=== PATIENT | female | born 1995 | race Caucasian/White ===

== ENCOUNTER 2023-12-04 12:08 | Emergency (ER) | payer OTHER, SELFPAY ==
--- NOTE | ~2023-12-04 | US_ITS ---
EXAMINATION: US PELVIS CLINICAL INFORMATION: Vaginal bleeding and pelvic pain COMPARISON: None available. TECHNIQUE: Ultrasound of the pelvis is performed using both transabdominal and transvaginal transducers along with Doppler. Transvaginal imaging is performed due to inadequate visualization transabdominally. FINDINGS: Uterus: The uterus is anteverted and measures 8.7 x 3.3 x 5.7 cm. The double wall endometrial thickness is 5 mm. The uterus is smooth in contour and has normal myometrial echogenicity. No visible fibroid. Adnexa: Both ovaries are visualized. There is normal color flow to the adnexa. There is no ovarian torsion. There is no pelvic ascites or fluid collection. Right ovary measures 3.1 x 3.4 x 2.4 cm for a volume of 13.2 mL. Left ovary measures 2.3 x 1.2 x 1.3 cm for a volume of 2.0 mL. US/US pelvic and transvaginal IMPRESSION: Unremarkable pelvic ultrasound.
[2023-12-04 12:21] VITALS: BP 106/68; PULSE 83; RESP 18; TEMP 36.2; O2SAT 98; BMI 30.4
--- NOTE | 2023-12-04 12:23 | ED.GENADULT ---
HPI - General Adult General Chief complaint: Vaginal Bleeding Stated complaint: All Over Body Pain Pressure on Ovaries Time Seen by Provider: 12/05/23 01:18 Source: patient Mode of arrival: ambulatory Limitations: no limitations History of Present Illness HPI narrative: Patient otherwise Healthy noticed vaginal bleeding earlier today change about 10 tempon today with lower abdominal discomfort feeling weak with body aches patient does have regular periods in the past not on any control pills used to be on IUD last year which was removed no fever no chills no cough Related Data Allergies Allergy/AdvReac Type Severity Reaction Status Date / Time onion Allergy Unknown Verified 12/04/23 12:21 shrimp Allergy Difficulty Verified 12/04/23 12:21 Swallowing Review of Systems Review of Systems: Yes all other systems are reviewed and are negative [facility] Social History Social History Advance Directives: No Advance Directives Information Provided: No Physical Exam ED Vital Signs: Vital Signs - 24 hr 12/04/23 12:21 Temperature 97.1 F Pulse Rate 83 Respiratory Rate 18 Blood Pressure 106/68 Pulse Oximetry 98 Oxygen Delivery Method Room Air BMI result Body Mass Index 30.4 Appearance: Alert. Oriented X3. No acute distress. Eyes: PERRLA, No Nystagmus ENT: Pharynx normal. Oral Mucosa moist Neck: Normal inspection. Neck supple. CVS: Normal heart rate and rhythm. Pulses normal. Respiratory: No respiratory distress. Equal air entry bilateral, no wheezing/rales/rhonchi Abdomen: Soft and nontender. Bowel sounds are present, no mass palpable, no CVA tenderness Skin: Skin warm and dry. Normal skin color. Normal skin turgor. Extremities: No lower extremity edema. No calf tenderness Neuro: Oriented X 3. No motor deficit. No sensory deficit.No cerebellar signs , cranial nerves II-XII intact Course Course Course Narrative: RME: 28 year-old F w/ PMHx presenting to the ED c/o generalized body aches x yesterday also with vaginal bleeding w/clots w/lower pelvic pain, sent in by . LMP yesterday. denies dysuria/vaginal d/c Admits tested negative for COVID/FLU today at . Labs, UA, Pelvic US ordered Full HPI, ROS and PE to be performed by primary ED provider. Medications Administered Discontinued Medications Generic Name Dose Route Start Last Admin Trade Name Marco PRN Reason Stop Dose Admin Acetaminophen 650 mg 12/04/23 20:13 12/04/23 20:16 Acetaminophen 325 Mg Tablet PO 12/04/23 20:14 650 mg ONCE ONE Administration Medical Decision Making Medical Decision Making [facility] Narrative: Patient workup is negative with H&H stable bleeding has decreased ultrasound of the abdomen is negative for acute will discharge patient home likely for DUB advised to follow with dolly operator Differential Diagnosis Differential Diagnoses: The differential diagnosis associated with the presentation includes Anemia/DUB/ Lab Data [facility] Lab Attestation statement: I reviewed the patient's lab results. 12/04/23 12:46 12/04/23 12:46 Labs: Lab Results 12/04/23 12/04/23 Range/Units 12:46 14:36 WBC 7.9 (4.8-10.8) X10*3/uL RBC 4.54 (4.20-5.50) X10*6/uL Hgb 13.8 (12.0-16.0) g/dl Hct 40.0 (37.0-47.0) % MCV 88.1 (80.0-98.0) fL MCH 30.4 (27.0-33.0) pg MCHC 34.5 (31.0-35.0) g/dl RDW 11.9 (11.0-16.0) % Plt Count 259 (160-400) X10*3/uL MPV 9.5 (9.4-12.3) fL Immature Gran % (Auto) 0.3 (0.0-0.4) % Neut % (Auto) 57.7 (45-73) % Lymph % (Auto) 33.6 (20-40) % [place] % (Auto) 7.1 (2-11) % Eos % (Auto) 1.0 (0-4) % Baso % (Auto) 0.3 (0-2) % Lymph # (Auto) 2.7 (1.2-4.9) X10*3/uL [place] # (Auto) 0.6 (0.1-1.2) X10*3/uL Eos # (Auto) 0.1 (0.0-0.4) X10*3/uL Baso # (Auto) 0.0 (0.0-0.2) X10*3/uL Abs Immat Gran (auto) 0.02 (0.00-0.03) X10*3/uL Absolute Neuts (auto) 4.6 (2.0-8.3) x10*3/uL Absolute Nucleated RBC 0.000 (0.0-0.012) X10*3/uL Nucleated RBC % (auto) 0.0 (0.0-0.2) /100WBC Sodium 142 (135-145) mmol/L Potassium 3.8 (3.3-5.1) mmol/L Chloride 112 H (96-108) mmol/L Carbon Dioxide 24 (22-29) mmol/L Anion Gap 10 L (12-20) BUN 11 (9-16) mg/dL Creatinine 0.74 (0.5-1.4) mg/dL Estim Creat Clear Calc 132.1 Estimated GFR > 60 Random Glucose 91 (60-115) mg/dL Calcium 9.0 (8.4-10.2) mg/dL Magnesium 2.0 (1.6-2.6) mg/dL Total Bilirubin 0.4 (0.0-1.0) mg/dL Direct Bilirubin 0.2 (0.0-0.5) mg/dL AST 12 (5-31) U/L ALT 10 (0-31) U/L Alkaline Phosphatase 64 (39-117) U/L Total Protein 7.0 (6.5-8.0) g/dL Albumin 4.1 (3.5-5.0) g/dL Lipase 20 (8-78) U/L Urine Color Yellow Urine Appearance Clear Urine pH 5.0 (5.0-9.0) Ur Specific [place] >= 1.030 H (1.005-1.025) Urine Protein Negative (Neg-Trace) mg/dL Urine Glucose (UA) Negative (Negative) mg/dL Urine Ketones Negative (Negative) mg/dL Urine Blood Small (1+) H (Negative) Urine Nitrite Negative (Negative) Ur Leukocyte Esterase Negative (Negative) Urine RBC 0-2 (0-2) /HPF Urine WBC 0-5 (0-5) /HPF Ur Squamous Epith Cells 0-2 (0-2) /HPF Urine Bacteria None Seen (None Seen) Hyaline Casts 0-2 (0-2) /LPF Urine Test NEGATIVE (NEGATIVE) Chlam trachomat DNA PCR NOT DETECTED (Not Detect.) N.gonorrhoeae DNA (PCR) NOT DETECTED (Not Detect.) Radiology Impression Discussion of test interpretation with radiology: I have reviewed the radiologist's reading. 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
[2023-12-04 12:54] LABS: MANUAL DIFF FLAG NO
[2023-12-04 12:56] LABS: Basophils Percent Auto 0.3 % (0-2); Eosinophils Absolute Auto 0.1 X10*3/uL (0.0-0.4); Hemoglobin 13.8 g/dl (12.0-16.0); Imm Gran Abs Auto 0.02 X10*3/uL (0.00-0.03); Imm Gran Pct Auto 0.3 % (0.0-0.4); Lymphocytes Absolute Auto 2.7 X10*3/uL (1.2-4.9); Lymphocytes Percent Auto 33.6 % (20-40); Mean Corpuscular HGB Conc 34.5 g/dl (31.0-35.0); Mean Corpuscular Hemoglobin 30.4 pg (27.0-33.0); Mean Corpuscular Volume 88.1 fL (80.0-98.0); Mean Platelet Volume 9.5 fL (9.4-12.3); Monocytes Absolute Auto 0.6 X10*3/uL (0.1-1.2); Monocytes Percent Auto 7.1 % (2-11); Neutrophils Absolute Auto 4.6 x10*3/uL (2.0-8.3); Neutrophils Percent Auto 57.7 % (45-73); Platelet Count 259 X10*3/uL (160-400); Red Blood Count 4.54 X10*6/uL (4.20-5.50); Red Cell Distribution Width 11.9 % (11.0-16.0); White Blood Count 7.9 X10*3/uL (4.8-10.8)
[2023-12-04 13:12] LABS: Alanine Aminotransferase 10 U/L (0-31); Albumin Level 4.1 g/dL (3.5-5.0); Alkaline Phosphatase 64 U/L (39-117); Anion Gap 10 (12-20); Aspartate Amino Transferase 12 U/L (5-31); Bilirubin Direct 0.2 mg/dL (0.0-0.5); Bilirubin Total 0.4 mg/dL (0.0-1.0); Blood Urea Nitrogen 11 mg/dL (9-16); Carbon Dioxide 24 mmol/L (22-29); Chloride 112 mmol/L (96-108); Creatinine Clr Calc Pharmacy 132.1; Estimated Glomerular Filt Rate > 60; Glucose Random 91 mg/dL (60-115); Lipase 20 U/L (8-78); Potassium 3.8 mmol/L (3.3-5.1); Sodium 142 mmol/L (135-145)
[2023-12-04 14:29] LABS: CT PCR NOT DETECTED (Not Detect.); NG PCR NOT DETECTED (Not Detect.)
[2023-12-04 14:46] LABS: Appearance Urine Clear; Color Urine Yellow; Glucose Urine UA Negative (Negative); Leukocyte Esterase Urine Negative (Negative); Nitrite Urine Negative (Negative); Specific Gravity - Urine >= 1.030 (1.005-1.025); UMIC TRIGGER UACC YES; Urine Blood Small (1+) (Negative); Urine Ketones Negative (Negative); Urine Protein Negative (Neg-Trace)
[2023-12-04 14:52] LABS: UPreg QC Valid YES; Urine Pregnancy NEGATIVE (NEGATIVE)
[2023-12-04 14:54] LABS: Bacteria Urine None Seen (None Seen); Hyaline Casts Urine 0-2 /LPF (0-2); RBC Urine 0-2 /HPF (0-2); Squamous Epithelial Cell Urine 0-2 /HPF (0-2); WBC Urine 0-5 /HPF (0-5)
[2023-12-04] MEDS: Acetaminophen 325 MG TABLET 650 MG PO (20:16)
--- OUTSIDE RECORDS SUMMARY | 2023-12-05 00:30 | XMS_ITS | Continuity of Care Document ---
Author Name Unknown Organization [facility] Address [address] [place] [address]- Care Team Providers Care Digital Account Supervisor Name Role Phone Lizzy LEO, Becky Primary Care Physician [facility]): 07[facility]20 - 08/21/20 [facility] [address] [place] [address]- [facility] Allergies, Adverse Reactions, Alerts Substance Reaction Severity Status Shrimp Active Onions Active Immunizations Given and Recorded Vaccine Date Status Refusal Reason tetanus/diphtheria/pertussis, acel(Tdap) 07/27/17 Recorded tetanus/diphtheria/pertussis, acel(Tdap) 03/19/14 Given tetanus/diphtheria/pertussis, acel(Tdap) 01/14/07 Given influenza virus vaccine, inactivated 1 12/15/15 Gi yessica influenza virus vaccine, inactivated 07/15/12 Give n Hepatitis A Pediatric Vaccine 03/10/15 Given Human Papillomavirus Vaccine 02/22/09 Given Human Papillomavirus Vaccine 10/23/08 Given Human Papillomavirus Vaccine 08/14/08 Given Varicella Virus Vaccine 08/14/08 Given Varicella Virus Vaccine 08/02/98 Given Meningococcal Conjugate Vaccine 01/14/07 Given Poliovirus Vaccine, Inactivated 08/02/98 Given Poliovirus Vaccine, Inactivated 02/09/95 Given Poliovirus Vaccine, Inactivated 94 Given Measles/Mumps/Rubella Virus Vaccine 08/02/98 Given Measles/Mumps/Rubella Virus Vaccine 06/15/95 Given diphtheria/tetanus/pertussis, acel(DTaP) 08/02/98 Given diphtheria/tetanus/pertussis, acel(DTaP) 04/11/96 Given diphtheria/tetanus/pertussis, acel(DTaP) 02/09/95 Given diphtheria/tetanus/pertussis, acel(DTaP) 94 Given diphtheria/tetanus/pertussis, acel(DTaP) 94 Given Haemophilus B conjugate (HbOC) vaccine 12/02/95 Gi yessica Haemophilus B conjugate (HbOC) vaccine 02/09/95 Gi yessica Haemophilus B conjugate (HbOC) vaccine 94 Gi yessica Haemophilus B conjugate (HbOC) vaccine 94 Gi yessica hepatitis B pediatric vaccine 02/09/95 Given hepatitis B pediatric vaccine 94 Given hepatitis B pediatric vaccine 94 Given Not Given Vaccine Date Status Refusal Reason influenza virus vaccine, inactivated 12/13/18 Not Given Patient Refuses pneumococcal 23-valent vaccine 12/13/18 Not Given Patient Refuses 1Admin Note: vis form given 06/18/2015 Medications Chantix Starter Pack 0.5 mg-1 mg oral tablet 1 tablet, By Mouth, 2 times a day, as directed on package labeling, # 53 tablet, 0 Refills, Maintenance, 01/06/20 8:04:00 EST, Tablet, [facility] #[id number], 1 tablet By Mouth 2 times a day,Instr:as directed on package labeling, 173, cm, ... Start Date: 01/06/20 Status: Ordered Mirena 52 mg intrauterine device 1 each = 52 mg, Once, 0 Refills, Maintenance, 04/28/19 14:03:15 EDT Start Date: 04/28/19 Status: Ordered Narcan 4 mg/0.1 mL nasal spray PRN overdose Rx by [facility], 0 Refills, Maintenance, 09/17/18 16:33:22 EST Start Date: 09/17/18 Status: Ordered sertraline 100 mg oral tablet 1.5 tablet = 150 mg, By Mouth, Daily, # 135 tablet, 1 Refills, Maintenance, 07/23/20 10:15:00 EDT, Tablet, [facility] #[id number], 173, cm, 01/31/20 14:00:00 EDT, Height, 86.6, kg, 12/02/19 9:54:00 EST, Dry Weight Start Date: 07/23/20 Stop Date: 01/19/21 Status: Ordered Vivitrol 380 mg intramuscular injection, extended release = 380 mg, Intramuscular, Every 28 days, Rx by [facility], 0 Refills, Maintenance, 10/17/1811:54:34 EST Start Date: 10/17/18 Status: Ordered Wellbutrin XL 150 mg/24 hours oral tablet, extended release 1 tablet = 150 mg, By Mouth, Every 24 hours, # 90 tablet, 1 Refills, Maintenance, 07/23/20 10:15:00EDT, ER Tablet, [facility] #[id number], 173, cm, 01/31/20 14:00:00 EDT, Height, 86.6, kg, 12/02/19 9:54:00 EST, Dry Weight Start Date: 07/23/20 Stop Date: 01/19/21 Status: Ordered ZyrTEC 10 mg oral tablet 1 tablet = 10 mg, By Mouth, Daily, PRN seasonal allergies, # 30 tablet, 5 Refills, Maintenance, 03/16/20 9:54:00 EDT, [facility] #[id number], 173, cm, 01/31/20 14:00:00 EDT, Height, 86.6, kg, 12/02/19 9:54:00 EST, Dry Weight Start Date: 03/16/20 Status: Ordered Problem List Condition Effective Dates Status Health Status Inform ant Cholelithiasis (gallstones)(Confirmed) Active Depression/Anxiety(Confirmed) Active Tobacco use(Confirmed) Active Social History Social History Type Response Smoking Status Current every day mel mark entered on: 12/16/15 Sex
--- OUTSIDE RECORDS SUMMARY | 2023-12-05 00:30 | XMS_ITS | Continuity of Care Document ---
Author Name Unknown Organization [facility] Address [address] [place] [address]- Care Team Providers Care Email Marketing Assistant Name Role Phone Lizzy LEO, Becky Primary Care Physician [facility]): 05/12[facility]20 - 06/11/20 [facility] [address] [place] [address]- [facility] Attending Physician: Armando Montero Admitting Physician: Armando Montero Referring Physician: AdmtrArmando Allergies, Adverse Reactions, Alerts Substance Reaction Severity [...] 0 Refills, Maintenance, 01/06/20 8:04:00 EST, Tablet, [facility] #[id number], 1 tablet By Mouth 2 times a [...] Daily, # 135 tablet, 1 Refills, Maintenance, 03/16/20 9:55:00 EDT, Tablet, [facility] #[id number], 173, cm, 01/31/20 14:00:00 EDT, Height, 86.6, kg, 12/02/19 9:54:00 EST, Dry Weight Start Date: 03/16/20 Stop Date: 09/12/20 Status: Ordered Vivitrol 380 mg intramuscular injection, extended release = 380 mg, Intramuscular, Every 28 days, Rx by [facility], 0 Refills, Maintenance, 10/17/1811:54:34 EST Start Date: 10/17/18 Status: Ordered Wellbutrin XL 150 mg/24 hours oral tablet, extended release 1 tablet = 150 mg, By Mouth, Every 24 hours, # 90 tablet, 1 Refills, Maintenance, 03/16/20 9:55:00 EDT, ER Tablet, [facility] #[id number], 173, cm, 01/31/20 14:00:00 EDT, Height, 86.6, kg, 12/02/19 9:54:00 EST, Dry Weight Start Date: 03/16/20 Stop Date: 09/12/20 Status: Ordered ZyrTEC 10 mg oral tablet 1 tablet = 10 mg, By Mouth, Daily, PRN seasonal allergies, # 30 tablet, 5 Refills, Maintenance, 03/16/20 9:54:00 EDT, [facility] #[id number], 173, cm, 01/31/20 14:00:00 EDT, Height, 86.6, kg, 12/02/19 9:54:00 EST, Dry Weight Start Date: 03/16/20 Status: Ordered Problem List Condition Effective Dates Status Health Status Inform ant Cholelithiasis (gallstones)(Confirmed) Active Depression/Anxiety(Confirmed) Active Tobacco use(Confirmed) Active Social History Social History Type Response Smoking Status Current every day mel mark entered on: 12/16/15 Sex
--- OUTSIDE RECORDS SUMMARY | 2023-12-05 00:30 | XMS_ITS | Continuity of Care Document ---
Author Name Unknown Organization [facility] Address [address] [place] [address]- Care Team Providers Care Actuarial Trainee Name Role Phone Diane Frank MD Primary Care Physician [facility] 10/10/23 - 11/09/23 [facility] [address] [place] [address]- Attending Physician: AdmArmando brothers Admitting Physician: Admtr, Armando Referring Physician: Admtr, Ar8 Allergies, Adverse Reactions, Alerts Substance Reaction Severity Status Shrimp Active Onions Active Immunizations Given and Recorded Vaccine Date Status Refusal Reason SARS-CoV-2 (COVID-19) mRNA-1273 vaccine 10/05/21 R ecorded SARS-CoV-2 (COVID-19) mRNA-1273 vaccine 12/29/20 R ecorded SARS-CoV-2 (COVID-19) mRNA-1273 vaccine 12/01/20 R ecorded influenza virus vaccine, inactivated 09/21/21 Lester rded influenza virus vaccine, inactivated 09/21/20 Lester rded influenza virus vaccine, inactivated 1 12/15/15 Gi yessica influenza virus vaccine, inactivated 07/15/12 Give n tetanus/diphtheria/pertussis, acel(Tdap) 07/27/17 Recorded tetanus/diphtheria/pertussis, acel(Tdap) 03/19/14 Given tetanus/diphtheria/pertussis, acel(Tdap) 01/14/07 Given Hepatitis A Pediatric Vaccine 03/10/15 Given Human [...] Given hepatitis B pediatric vaccine 94 Given 1Admin Note: vis form given 06/18/2015 Medications albuterol CFC free 90 mcg/inh inhalation aerosol 2, puffs, Inhalation, Every 6 hours, PRN, # 8.5 Gm, Refills 1, Tot. Refills 1, Maintenance, 03/06/23 17:32:00 EDT, Aerosol, Route to Pharmacy Electronically, [id number], [facility] #[id number], [facility] not available, 173... Start Date: 03/06/23 Stop Date: 05/05/23 Status: Ordered buPROPion 300 mg/24 hours (XL) oral tablet, extended release 1 tablet = 300 mg, By Mouth, Daily, Rx by [facility], 0 Refills, Maintenance, 12/01/20 13:52:00 EST, Partial fill upon patient request if the prescription is for a schedule II opioid drug. Start Date: 12/01/20 Status: Ordered Hair, Skin & Nails 5 mg oral capsule 1 capsule = 5 mg, By Mouth, Daily, # 30 capsule, 0 Refills, Maintenance, 01/09/22 11:26:00 EST, [facility] #[id number], Partial fill upon patient request if the prescription is for a schedule IIopioid drug., 1 capsule By Mouth Daily, 173, cm, 02... Start Date: 01/09/22 Status: Ordered hydrOXYzine hydrochloride 25 mg oral tablet 1 tablet = 25 mg, By Mouth, 2 times a day, PRN anxiety, 0 Refills, Maintenance, 01/04/21 14:15:00 EST, Partial fill upon patient request if the prescription is for a schedule II opioid drug. Start Date: 01/04/21 Status: Ordered lamotrigine 200 mg oral tablet 1 tablet = 200 mg, By Mouth, Daily at bedtime, Rx by [facility], 0 Refills, Maintenance,02/15/21 10:47:00 EDT, Partial fill upon patient request if the prescription is for a schedule II opioid drug. Start Date: 02/15/21 Status: Ordered Mirena 52 mg intrauterine device 1 each = 52 mg, Once, 0 Refills, Maintenance, 04/28/19 14:03:15 EDT Start Date: 04/28/19 Status: Ordered Narcan 4 mg/0.1 mL nasal spray = 4 mg, Nares, Both, Once, may repeat every 2 to 3 minutes until patient responds, # 2 each, 5 Refills, Soft Stop, 12/01/20 13:54:00 EST, [place], [facility] #[id number], Partial fill upon patientrequest if the prescription is for a schedule II op... Start Date: 12/01/20 Status: Ordered Paxlovid 150 mg-100 mg oral tablet See Instructions, 300mg nirmatrelvir (two 150mg tablets) with 100mg ritonavir (one tablet). All 3 tablets taken together twice daily for 5 days, with or without food, # 30 tablet, 0 Refills, Maintenance, 05/26/22 9:41:00 EDT, [facility],... Start Date: 05/26/22 Status: Ordered Sertraline = 175 mg, By Mouth, Daily, Rx by [facility], 0 Refills, Maintenance, 01/04/21 14:16:00 EST, Partial fill upon patient request if the prescription is for a schedule II opioid drug. Start Date: 01/04/21 Status: Ordered Vivitrol 380 mg intramuscular injection, extended release 0 Refills, Maintenance, 05/25/22 13:08:00 EDT, Partial fill upon patient request if the prescription is for a schedule II opioid drug. Start Date: 05/25/22 Status: Ordered ZyrTEC 10 mg oral tablet 1 tablet = 10 mg, By Mouth, Daily, PRN seasonal allergies, # 30 tablet, 5 Refills, Maintenance, 03/05/23 14:53:00 EDT, [facility] #[id number], 173, cm, 04/10/22 13:09:00 EDT, Height Start Date: 03/05/23 Status: Ordered Problem List Condition Confirmation Course Effective Dates Status H ealth Status Informant Cholelithiasis (gallstones) Confirmed Active Depression/Anxiety Confirmed Active Obese class I Confirmed Active Tobacco use Confirmed Active Social History Social History Type Response Smoking Status 5-9 cigarettes (betw een 1/4 to 1/2 pack)/day in last 30 days; Other: trying to quit - down from 15 to 2cig daily; entered on: 01/09/22 Sex Patient Care team information Care Team Personnel Name: Zac LEO, Diane Parekh Position: [facility] Physician - Primary Care Member Role: PCP Address: Address: [address] [place] [address] Adult & Pediatric [address] Name: Rosalina Hadley RN Position: [facility] RN Member Role: Primary Care Nurse Care Team Related Persons Name: JEFFREY RODRIGUEZ Address: home [address], [place] Name: SARATH GILLILAND Address: home [address], [place] Name: SHELDON GILLILAND Address: [address] Address: home [address] [place] [address]
--- OUTSIDE RECORDS SUMMARY | 2023-12-05 00:30 | XMS_ITS | Continuity of Care Document ---
Author Name Unknown Organization [facility] Address [address] [place] [address]- Care Team Providers Care Packing And Shipping Clerk Name Role Phone Becky Ball MD Primary Care Physician [phone] [facility] 05[facility]20 - 05/10/20 [facility] [address] [place] [address]- [facility] Attending Physician: Becky Ball MD Allergies, Adverse Reactions, Alerts Substance Reaction Severity [...] 0 Refills, Maintenance, 01/06/20 8:04:00 EST, Tablet, [facility] #[id number], 1 tablet By Mouth 2 times a [...] 1 Refills, Maintenance, 03/16/20 9:55:00 EDT, Tablet, [facility] #[id number], 173, cm, 01/31/20 14:00:00 EDT, Height, 86.6, [...] Refills, Maintenance, 03/16/20 9:55:00 EDT, ER Tablet, [facility] #[id number], 173, cm, 01/31/20 14:00:00 EDT, Height, 86.6, kg, 12/02/19 9:54:00 EST, Dry Weight Start Date: 03/16/20 Stop Date: 09/12/20 Status: Ordered ZyrTEC 10 mg oral tablet 1 tablet = 10 mg, By Mouth, Daily, PRN seasonal allergies, # 30 tablet, 5 Refills, Maintenance, 03/16/20 9:54:00 EDT, [facility] #[id number], 173, cm, 01/31/20 14:00:00 EDT, Height, 86.6, kg, 12/02/19 9:54:00 EST, Dry Weight Start Date: 03/16/20 Status: Ordered Problem List Condition Effective Dates Status Health Status Inform ant Cholelithiasis (gallstones)(Confirmed) Active Depression/Anxiety(Confirmed) Active Tobacco use(Confirmed) Active Social History Social History Type Response Smoking Status Current every day mel mark entered on: 12/16/15 Sex
--- OUTSIDE RECORDS SUMMARY | 2023-12-05 00:30 | XMS_ITS | Continuity of Care Document ---
Author Name Unknown Organization [facility] Address [address] [place] [address]- Care Team Providers Care Janitorial Services Supervisor Name Role Phone Diane Frank MD Primary Care Physician [facility]): 02/12/23 - 03/14/23 [facility] [address] [place], [place] [address] Allergies, Adverse Reactions, Alerts Substance Reaction Severity [...] 17:32:00 EDT, Aerosol, Route to Pharmacy Electronically, [id number], [facility] #[id number], [facility] not available, 173... Start Date: 03/06/23 Stop Date: 05/05/23 Status: Ordered buPROPion 300 mg/24 hours (XL) oral tablet, extended release 1 tablet = 300 mg, By Mouth, Daily, Rx by [facility], 0 Refills, Maintenance, 12/01/20 13:52:00 EST, Partial fill upon patient request if the prescription is for a schedule II opioid drug. Start Date: 12/01/20 Status: Ordered Hair, Skin & Nails 5 mg oral capsule 1 capsule = 5 mg, By Mouth, Daily, # 30 capsule, 0 Refills, Maintenance, 01/09/22 11:26:00 EST, [facility] #[id number], Partial fill upon patient request if the [...] 5 Refills, Soft Stop, 12/01/20 13:54:00 EST, [place], [facility] #[id number], Partial fill upon patientrequest if the prescription is for a schedule II op... Start Date: 12/01/20 Status: Ordered Paxlovid 150 mg-100 mg oral tablet See Instructions, 300mg nirmatrelvir (two 150mg tablets) with 100mg ritonavir (one tablet). All 3 tablets taken together twice daily for 5 days, with or without food, # 30 tablet, 0 Refills, Maintenance, 05/26/22 9:41:00 EDT, [facility],... Start Date: 05/26/22 Status: Ordered Sertraline [...] tablet, 5 Refills, Maintenance, 03/05/23 14:53:00 EDT, [facility] #[id number], 173, cm, 04/10/22 13:09:00 EDT, Height Start [...] Personnel Name: Zac LEO, Diane Parekh Position: [facility] Primary Care Physician Member Role: PCP Address: Address: [address] [place] [address] Adult & Pediatric [address] Name: Rosalina Hadley RN Position: S RN Member Role: Primary Care Nurse Name: Carin Foreman RN Position: [facility] OB RN Member Role: Primary Care Nurse Care Team Related Persons Name: JEFFREY RODRIGUEZ Address: [address], [place] Name: SARATH GILLILAND Address: home [address] [place], [place] Name: SHELDON GILLILAND Address: [address] Address: home [address] [place] [address]
--- OUTSIDE RECORDS SUMMARY | 2023-12-05 00:30 | XMS_ITS | Continuity of Care Document ---
Author Name Unknown Organization [facility] Address [address] [place] [address]- Care Team Providers Care Nuclear Auxiliary Operator Name Role Phone Lizzy LEO, Becky Primary Care Physician [phone] [place] [facility] [place] 01[place] - 02/07/20 [facility] [address] [place] [address]- [facility] Attending Physician: Alverto Massey MD Referring Physician: Becky Ball MD Allergies, Adverse Reactions, [...] 0 Refills, Maintenance, 01/06/20 8:04:00 EST, Tablet, [facility] #[id number], 1 tablet By Mouth 2 times a [...] 16:33:22 EST Start Date: 09/17/18 Status: Ordered penicillin V potassium 500 mg oral tablet 1 tablet = 500 mg, By Mouth, Every 8 hours, for 10 days, # 30 tablet, 0 Refills, Acute 02/10/20 14:10:00 EDT, 01/31/20 14:10:00 EDT, [facility] #[id number], 173, cm, 01/31/20 14:00:00 EDT, Height, 86.6, kg, 12/02/19 9:54:00 EST, Dry Weight Start Date: 01/31/20 Stop Date: 02/10/20 Status: Ordered sertraline 100 mg oral tablet 1 tablet = 100 mg, By Mouth, Daily, # 90 tablet, 1 Refills, Maintenance, 12/02/19 10:10:00 EST, Tablet, [facility] [address], 173, cm, 12/02/19 9:54:00 EST, Height, 86.6, kg, 12/02/19 9:54:00 EST, Dry Weight Start Date: 12/02/19 Stop Date: 05/30/20 Status: Ordered Vivitrol 380 mg intramuscular injection, extended release = 380 mg, Intramuscular, Every 28 days, Rx by [facility], 0 Refills, Maintenance, 10/17/1811:54:34 EST Start Date: 10/17/18 Status: Ordered Wellbutrin XL 150 mg/24 hours oral tablet, extended release 1 tablet = 150 mg, By Mouth, Every 24 hours, # 90 tablet, 1 Refills, Maintenance, 12/02/19 10:10:00EST, ER Tablet, [facility] [address], 173, cm, 12/02/19 9:54:00 EST, Height, 86.6, kg, :54:00 EST, Dry Weight Start Date: 12/02/19 Stop Date: 05/30/20 Status: Ordered ZyrTEC 10 mg oral tablet 1 tablet = 10 mg, By Mouth, Daily, PRN seasonal allergies, # 30 tablet, 5 Refills, Maintenance, 12/02/19 10:09:00 EST, [facility] [address], 173, cm, 12/02/19 9:54:00 EST, Height, 86.6, kg, 12/02/19 9:54:00 EST, Dry Weight Start Date: 12/02/19 Status: Ordered Problem List Condition Effective Dates Status Health Status Inform ant Cholelithiasis (gallstones)(Confirmed) Active Depression/Anxiety(Confirmed) Active Tobacco use(Confirmed) Active Vital Signs Most recent to oldest [Reference Range]: 1 Height 173 cm (01/31/20 2:00 PM) Oxygen Saturation [94-100 %] 100 % (01/31/20 2:00 PM) Pulse Rate [55-90 bpm] 101 bpm *H* (01/31/20 2:00 PM) Blood Pressure [90-138/55-84 mm Hg] 116/ 60mm Hg (01/31/20 2:00 PM) Respiratory Rate [16-30 br/min] 20 br/mi n (01/31/20 2:00 PM) Temperature [96.8-100.4 DegF] 98.8 DegF (01/31/20 2:00 PM) Mode of Delivery (Oxygen) Room air (01/31/20 2:00 PM) Blood pressure sites Arm, right (01/31/20 2:00 PM) Temperature Route Temporal (01/31/20 2:00 PM) Social History Social History Type Response Smoking Status Current every day mel mark entered on: 12/16/15 Sex
--- OUTSIDE RECORDS SUMMARY | 2023-12-05 00:30 | XMS_ITS | Continuity of Care Document ---
Author Name Unknown Organization [facility] Address [address] [place] [address]- Care Team Providers Care Framing Manager Name Role Phone Diane Frank MD Primary Care Physician [facility] Date[facility]s): 05/25/22 - 06/24/22 [facility] [address] [place], [place] [address] [[email or web address] Encounter Diagnosis COVID-19 virus infection(Discharge Diagnosis) - 05/26/22 Mild asthma exacerbation(Discharge Diagnosis) - 05/26/22 Allergies, Adverse Reactions, Alerts Substance Reaction Severity [...] 1Admin Note: vis form given 06/18/2015 Medications buPROPion 300 mg/24 hours (XL) oral tablet, extended release 1 tablet = 300 mg, By Mouth, Daily, Rx by [facility], 0 Refills, Maintenance, 12/01/20 13:52:00 EST, Partial fill upon patient request if the prescription is for a schedule II opioid drug. Start Date: 12/01/20 Status: Ordered Hair, Skin & Nails 5 mg oral capsule 1 capsule = 5 mg, By Mouth, Daily, # 30 capsule, 0 Refills, Maintenance, 01/09/22 11:26:00 EST, [id number], Partial fill upon patient request if the [...] 5 Refills, Soft Stop, 12/01/20 13:54:00 EST, [place], [facility] #[id number], Partial fill upon patientrequest if the prescription is for a schedule II op... Start Date: 12/01/20 Status: Ordered Paxlovid 150 mg-100 mg oral tablet See Instructions, 300mg nirmatrelvir (two 150mg tablets) with 100mg ritonavir (one tablet). All 3 tablets taken together twice daily for 5 days, with or without food, # 30 tablet, 0 Refills, Maintenance, 05/26/22 9:41:00 EDT, [facility],... Start Date: 05/26/22 Status: Ordered ProAir HFA 90 mcg/inh inhalation aerosol with adapter 2, puffs, Inhalation, Every 6 hours, PRN, # 8.5 Gm, Refills 5, Route to Pharmacy Electronically, NCPDP_[id number], [facility] #[id number], 173, cm, 01/09/22 11:00:00 EST, Height, 97.5, kg, 12/04/20 15:25:00 EST, Dry Weight Start Date: 01/29/22 Status: Ordered Sertraline = 175 mg, By [...] allergies, # 30 tablet, 5 Refills, Maintenance, 01/09/22 11:43:00 EST, [facility] #[id number], 173, cm, 01/09/22 11:00:00 EST, Height, 97.5, kg, 12/04/20 15:25:00 EST, Dry Weight Start Date: 01/09/22 Status: Ordered Problem List Condition Effective Dates Status Health Status Inform ant Cholelithiasis (gallstones)(Confirmed) Active Depression/Anxiety(Confirmed) Active Obese class I(Confirmed) Active Tobacco use(Confirmed) Active Diagnosis Diagnosis Type Effective Dates Health Status Clinical Service Informant COVID-19 virus infection Discharge Diagnosis 05/26/22 Non-Specified Mild asthma exacerbation Discharge Diagnosis 05/26/22 Non-Specified Social History Social History Type Response Smoking Status 5-9 cigarettes (betw een 1/4 to 1/2 pack)/day in last 30 days; Other: trying to quit - down from 15 to 2cig daily; entered on: 01/09/22 Sex
--- OUTSIDE RECORDS SUMMARY | 2023-12-05 00:30 | XMS_ITS | Continuity of Care Document ---
Author Name Unknown Organization [facility] Address [address] [place] [address]- Care Team Providers Care Spanish Teacher Name Role Phone Zac LEO, Diane Parekh Primary Care Physician Encounter [facility] Date(s): 01/09/22 - 01/16/22 [facility] [address] [place], [place] [address] Attending Physician: Diane Frank MD Allergies, Adverse Reactions, Alerts Substance Reaction Severity Status Shrimp Active Onions Active Immunizations Given and Recorded Vaccine Date Status Refusal Reason SARS-CoV-2 (COVID-19) mRNA-1273 vaccine 10/05/21 R ecorded SARS-CoV-2 (COVID-19) mRNA-1273 vaccine 12/29/20 R ecorded SARS-CoV-2 (COVID-19) mRNA-1273 vaccine 12/01/20 R ecorded influenza virus vaccine, inactivated 09/21/21 Lester rded influenza virus vaccine, inactivated 1 [...] 300 mg, By Mouth, Daily, Rx by [facility], 0 Refills, Maintenance, 12/01/20 13:52:00 EST, Partial fill upon patient request if the prescription is for a schedule II opioid drug. Start Date: 12/01/20 Status: Ordered Hair, Skin & Nails 5 mg oral capsule 1 capsule = 5 mg, By Mouth, Daily, # 30 capsule, 0 Refills, Maintenance, 01/09/22 11:26:00 EST, [id number], Partial fill upon patient request if the [...] 5 Refills, Soft Stop, 12/01/20 13:54:00 EST, [place], [facility] #[id number], Partial fill upon patientrequest if the prescription is for a schedule II op... Start Date: 12/01/20 Status: Ordered ProAir HFA 90 mcg/inh inhalation aerosol 2 puffs, Inhalation, Every 6 hours, PRN Wheezing/Shortness of Breath, # 8.5 Gm, 0 Refills, Maintenance, 01/09/22 11:43:00 EST, [facility] #[id number], Partial fill upon patient request if the prescription is for a schedule II opioid drug., 2 puff... Start Date: 01/09/22 Status: Ordered Sertraline = 175 mg, By Mouth, Daily, Rx by [facility], 0 Refills, Maintenance, 01/04/21 14:16:00 EST, Partial fill upon patient request if the prescription is for a schedule II opioid drug. Start Date: 01/04/21 Status: Ordered ZyrTEC 10 mg oral tablet 1 tablet = 10 mg, By Mouth, Daily, PRN seasonal allergies, # 30 tablet, 5 Refills, Maintenance, 01/09/22 11:43:00 EST, [facility] #[id number], 173, cm, 01/09/22 11:00:00 EST, Height, 97.5, kg, 12/04/20 15:25:00 EST, Dry Weight Start Date: 01/09/22 Status: Ordered Problem List Condition Effective Dates Status Health Status Inform ant Cholelithiasis (gallstones)(Confirmed) Active Depression/Anxiety(Confirmed) Active Obese class I(Confirmed) Active Tobacco use(Confirmed) Active Vital Signs Most recent to oldest [Reference Range]: 1 Height 173 cm (01/09/22 11:00 AM) Weight 99.5 kg (01/09/22 11:00 AM) Oxygen Saturation [94-100 %] 96 % (01/09/22 11:00 AM) Pulse Rate [55-90 bpm] 107 bpm *H* (01/09/22 11:00 AM) Body Mass Index [18.5-24.99] 33.25 *>HHI* (01/09/22 11:00 AM) Blood Pressure [90-138/55-84 mm Hg] 96/6 3mm Hg (01/09/22 11:00 AM) Temperature [96.8-100.4 DegF] 97.8 DegF (01/09/22 11:00 AM) Mode of Delivery (Oxygen) Room air (01/09/22 11:00 AM) Blood pressure sites Arm, left (01/09/22 11:00 AM) Temperature Route Temporal (01/09/22 11:00 AM) Weight Obtained Via Standing scale (01/09/22 11:00 AM) Social History Social History Type Response Smoking Status 5-9 cigarettes (betw een 1/4 to 1/2 pack)/day in last 30 days; Other: trying to quit - down from 15 to 2cig daily; entered on: 01/09/22 Sex
--- OUTSIDE RECORDS SUMMARY | 2023-12-05 00:31 | XMS_ITS | Continuity of Care Document ---
Author Name Unknown Organization [facility] Address [address] [place] [address]- Care Team Providers Care Knowledge Management Advisor Name Role Phone Lizzy LEO, Becky Primary Care Physician [phone] [facility]counter [facility] Date(s): 02/15/21 - 03/17/21 [facility] [address] [place], [place] [address] Attending Physician: Not on Staff, Attending MD Allergies, Adverse Reactions, Alerts Substance Reaction [...] 300 mg, By Mouth, Daily, Rx by [facility], 0 Refills, Maintenance, 12/01/20 13:52:00 EST, Partial fill upon patient request if the prescription is for a schedule II opioid drug. Start Date: 12/01/20 Status: Ordered hydrOXYzine hydrochloride 25 mg oral [...] 5 Refills, Soft Stop, 12/01/20 13:54:00 EST, [place], [facility] #[id number], Partial fill upon patientrequest if the prescription is for a schedule II op... Start Date: 12/01/20 Status: Ordered Sertraline = 175 mg, By Mouth, Daily, Rx by [facility], 0 Refills, Maintenance, 01/04/21 14:16:00 EST, Partial fill upon patient request if the prescription is for a schedule II opioid drug. Start Date: 01/04/21 Status: Ordered traZODone 50 mg oral tablet 50 mg, 1, tablet, By Mouth, Daily at bedtime, PRN, Rx by [facility], Refills 0, Maintenance, Sleep, 01/04/21 14:15:00 EST, Partial fill upon patient request if the prescription is for a schedule II opioid drug. Start Date: 01/04/21 Status: Ordered ZyrTEC 10 mg oral tablet 1 tablet = 10 mg, By Mouth, Daily, PRN seasonal allergies, # 30 tablet, 5 Refills, Maintenance, 01/24/21 [id number], 173, cm, 12/04/20 15:25:00 EST, Height, 97.5, kg, 12/04/20 15:25:00 EST, Dry Weight Start Date: 01/24/21 Status: Ordered Problem List Condition Effective Dates Status Health Status Inform ant Cholelithiasis (gallstones)(Confirmed) Active Depression/Anxiety(Confirmed) Active Tobacco use(Confirmed) Active Social History Social History Type Response Smoking Status 5-9 cigarettes (betw een 1/4 to 1/2 pack)/day in last 30 days entered on: 12/03/20 Sex
--- OUTSIDE RECORDS SUMMARY | 2023-12-05 00:31 | XMS_ITS | Continuity of Care Document ---
Author Name Unknown Organization [facility] Address [address] [place] [address]- Care Team Providers Care Customs Port Director Name Role Phone Diane Frank MD Primary Care Physician [phone] [facility]counter [facility] Date(s): 03/30/22 - 04/29/22 [facility] [address] [place], [place] [address] Allergies, Adverse Reactions, Alerts Substance Reaction Severity [...] 300 mg, By Mouth, Daily, Rx by [facility], 0 Refills, Maintenance, 12/01/20 13:52:00 EST, Partial fill upon patient request if the prescription is for a schedule II opioid drug. Start Date: 12/01/20 Status: Ordered Hair, Skin & Nails 5 mg oral capsule 1 capsule = 5 mg, By Mouth, Daily, # 30 capsule, 0 Refills, Maintenance, 01/09/22 11:26:00 EST, [facility] #[id number], Partial fill upon patient request if the [...] 5 Refills, Soft Stop, 12/01/20 13:54:00 EST, [place], [facility] #[id number], Partial fill upon patientrequest if the prescription is for a schedule II op... Start Date: 12/01/20 Status: Ordered ProAir HFA 90 mcg/inh inhalation aerosol with adapter 2, puffs, Inhalation, Every 6 hours, PRN, # 8.5 Gm, Refills 5, Route to Pharmacy Electronically, NCPDP_[id number], [facility] #[id number], 173, cm, 01/09/22 11:00:00 EST, Height, 97.5, kg, 12/04/20 15:25:00 EST, Dry Weight Start Date: 01/29/22 Status: Ordered Sertraline = 175 mg, By Mouth, Daily, Rx by [facility], 0 Refills, Maintenance, 01/04/21 14:16:00 EST, Partial fill upon patient request if the prescription is for a schedule II opioid drug. Start Date: 01/04/21 Status: Ordered ZyrTEC 10 mg oral tablet 1 tablet = 10 mg, By Mouth, Daily, PRN seasonal allergies, # 30 tablet, 5 Refills, Maintenance, 01/09/22 11:43:00 EST, [facility] #[id number], 173, cm, 01/09/22 11:00:00 EST, Height, 97.5, kg, 12/04/20 15:25:00 EST, Dry Weight Start Date: 01/09/22 Status: Ordered Problem List Condition Effective Dates Status Health Status Inform ant Cholelithiasis (gallstones)(Confirmed) Active Depression/Anxiety(Confirmed) Active Obese class I(Confirmed) Active Tobacco use(Confirmed) Active Social History Social History Type Response Smoking Status 5-9 cigarettes (betw een 1/4 to 1/2 pack)/day in last 30 days; Other: trying to quit - down from 15 to 2cig daily; entered on: 01/09/22 Sex
--- OUTSIDE RECORDS SUMMARY | 2023-12-05 00:31 | XMS_ITS | Continuity of Care Document ---
Author Name Unknown Organization [facility] Address [address] [place] [address]- Care Team Providers Care Ehs Manager Name Role Phone Lizzy LEO, Becky Primary Care Physician [facility] Date(s): 02/10/21 - 03/12/21 [facility] [address] [place], [place] [address] Allergies, Adverse Reactions, Alerts Substance [...] 5 Refills, Soft Stop, 12/01/20 13:54:00 EST, [place], [facility] #[id number], Partial fill upon patientrequest if the prescription [...] 30 tablet, 5 Refills, Maintenance, 01/24/21 13:55:00 EDT, [facility] #[id number], 173, cm, 12/04/20 15:25:00 EST, Height, 97.5, [...]
--- OUTSIDE RECORDS SUMMARY | 2023-12-05 00:31 | XMS_ITS | Continuity of Care Document ---
Author Name Unknown Organization [facility] Address [address] [place] [address]- Care Team Providers Care Welder Experimental Name Role Phone Diane Frank MD Primary Care Physician [facility] Date[facility]s): 03/05/23 - 04/04/23 [facility] [address] [place], [place] [address] Allergies, Adverse Reactions, Alerts Substance Reaction Severity [...] 17:32:00 EDT, Aerosol, Route to Pharmacy Electronically, [id number], [facility] #[id number], pro [facility] not available, 173... Start Date: 03/06/23 Stop Date: 05/05/23 Status: Ordered buPROPion 300 mg/24 hours (XL) oral tablet, extended release 1 tablet = 300 mg, By Mouth, Daily, [facility], 0 Refills, Maintenance, 12/01/20 13:52:00 EST, Partial fill upon patient request if the prescription is for a schedule II opioid drug. Start Date: 12/01/20 Status: Ordered Hair, Skin & Nails 5 mg oral capsule 1 capsule = 5 mg, By Mouth, Daily, # 30 capsule, 0 Refills, Maintenance, 01/09/22 11:26:00 EST, [facility] #[id number], Partial fill upon patient request if the [...] 5 Refills, Soft Stop, 12/01/20 13:54:00 EST, [place], [facility] #[id number], Partial fill upon patientrequest if the prescription is for a schedule II op... Start Date: 12/01/20 Status: Ordered Paxlovid 150 mg-100 mg oral tablet See Instructions, 300mg nirmatrelvir (two 150mg tablets) with 100mg ritonavir (one tablet). All 3 tablets taken together twice daily for 5 days, with or without food, # 30 tablet, 0 Refills, Maintenance, 05/26/22 9:41:00 EDT, [facility] 3,... Start Date: 05/26/22 Status: Ordered Sertraline [...] tablet, 5 Refills, Maintenance, 03/05/23 14:53:00 EDT, [facility] #[id number], 173, cm, 04/10/22 13:09:00 EDT, Height Start [...] Personnel Name: Zac LEO, Diane Parekh Position: [facility] Physician - Primary Care Member Role: PCP Address: Address: [address] [place] [address] Adult [place] [address]- Name: Rosalina Hadley RN Position: S RN Member Role: Primary Care Nurse Name: Carin Foreman RN Position: [facility] OB RN Member Role: Primary Care Nurse Care Team Related Persons Name: JEFFREY RODRIGUEZ Address: home [address], [place] Name: SARATH GILLILAND Address: home [address], [place] Name: SHELDON GILLILAND Address: [address] Address: [address] [place] [address]
--- OUTSIDE RECORDS SUMMARY | 2023-12-05 00:31 | XMS_ITS | Continuity of Care Document ---
Author Name Unknown Organization [facility] Address [address] [place] [address]- Care Team Providers Care Hand Screen Printer Name Role Phone Diane Frank MD Primary Care Physician [facility] Date(s): 05/24/22 - 06/23/22 [facility] [address] [place], [place] [address] Allergies, Adverse Reactions, Alerts Substance [...] influenza virus vaccine, inactivated 1 12/15/15 Gi yesscia influenza virus vaccine, inactivated 07/15/12 Give n [...] By Mouth, Daily, Rx by [facility], 0 Refills, Maintenance, 12/01/20 13:52:00 EST, Partial fill upon patient request if the prescription is for a schedule II opioid drug. Start Date: 12/01/20 Status: Ordered Hair, Skin & Nails 5 mg oral capsule 1 capsule = 5 mg, By Mouth, Daily, # 30 capsule, 0 Refills, Maintenance, 01/09/22 11:26:00 EST, [facility] #[id number], Partial fill upon patient request if the [...] 5 Refills, Soft Stop, 12/01/20 13:54:00 EST, [place], [facility] #[id number], Partial fill upon patientrequest if the prescription is for a schedule II op... Start Date: 12/01/20 Status: Ordered Paxlovid 150 mg-100 mg oral tablet See Instructions, 300mg nirmatrelvir (two 150mg tablets) with 100mg ritonavir (one tablet). All 3 tablets taken together twice daily for 5 days, with or without food, # 30 tablet, 0 Refills, Maintenance, 05/26/22 9:41:00 EDT, [facility] 3,... Start Date: 05/26/22 Status: Ordered ProAir HFA 90 mcg/inh inhalation aerosol with adapter 2, puffs, Inhalation, Every 6 hours, PRN, # 8.5 Gm, Refills 5, Route to Pharmacy Electronically, NCPDP_[id number], [facility] #[id number], 173, cm, 01/09/22 11:00:00 EST, Height, 97.5, [...] tablet, 5 Refills, Maintenance, 01/09/22 11:43:00 EST, [facility] #[id number], 173, cm, 01/09/22 11:00:00 EST, Height, 97.5, [...]
--- OUTSIDE RECORDS SUMMARY | 2023-12-05 00:31 | XMS_ITS | Continuity of Care Document ---
Author Name Unknown Organization [facility] Address [address] [place] [address]- Care Team Providers Care Senior Dot Net Developer Name Role Phone Becky Ball MD Primary Care Physician [phone] Encounter [facility] Date(s): 05/03/20 - 07/16/20 [facility] [address] [place] [address]- [facility] Attending Physician: Becky Ball MD Allergies, [...] 0 Refills, Maintenance, 01/06/20 8:04:00 EST, Tablet, [facility] #[id number], 1 tablet By Mouth 2 times a [...] 1 Refills, Maintenance, 03/16/20 9:55:00 EDT, Tablet, [facility] #[id number], 173, cm, 01/31/20 14:00:00 EDT, Height, 86.6, [...] Refills, Maintenance, 03/16/20 9:55:00 EDT, ER Tablet, [facility] #[id number], 173, cm, 01/31/20 14:00:00 EDT, Height, 86.6, kg, 12/02/19 9:54:00 EST, Dry Weight Start Date: 03/16/20 Stop Date: 09/12/20 Status: Ordered ZyrTEC 10 mg oral tablet 1 tablet = 10 mg, By Mouth, Daily, PRN seasonal allergies, # 30 tablet, 5 Refills, Maintenance, 03/16/20 9:54:00 EDT, [facility] #[id number], 173, cm, 01/31/20 14:00:00 EDT, Height, 86.6, kg, 12/02/19 9:54:00 EST, Dry Weight Start Date: 03/16/20 Status: Ordered Problem List Condition Effective Dates Status Health Status Inform ant Cholelithiasis (gallstones)(Confirmed) Active Depression/Anxiety(Confirmed) Active Tobacco use(Confirmed) Active Social History Social History Type Response Smoking Status Current every day mel mark entered on: 12/16/15 Sex
--- OUTSIDE RECORDS SUMMARY | 2023-12-05 00:31 | XMS_ITS | Continuity of Care Document ---
Author Name Unknown Organization [facility] Address [address] [place] [address]- Care Team Providers Care Medical Records Clerk Name Role Phone Lizzy LEO, Becky Primary Care Physician [facility]s): 02[facility]17[facility]21 - 03/31/21 [facility] [address] [place], [place] [address] Attending Physician: Not on Staff, Attending MD [...] 5 Refills, Soft Stop, 12/01/20 13:54:00 EST, [place], [facility] #[id number], Partial fill upon patientrequest if the prescription [...] 30 tablet, 5 Refills, Maintenance, [facility]21 [id number], 173, cm, 12/04/20 15:25:00 EST, Height, 97.5, [...]
--- OUTSIDE RECORDS SUMMARY | 2023-12-05 00:31 | XMS_ITS | Continuity of Care Document ---
Author Name Unknown Organization [facility] Loraine sidra Address [address] [place] [address] [address] [place] [address]- Care Team Providers Care Ladies Locker Room Attendant Name Role Phone Becky Ball MD Primary Care Physician [facility]): 01/[facility]/21 - 02/02/21 [facility] Surgery [address] [place] [address] Drive [address] [place] [address]- Allergies, Adverse Reactions, Alerts Substance Reaction Severity Status Shrimp Active Onions Active Immunizations Given and Recorded Vaccine Date Status Refusal Reason tetanus/diphtheria/pertussis, acel(Tdap) 07/27/17 Recorded tetanus/diphtheria/pertussis, acel(Tdap) 03/19/14 Given tetanus/diphtheria/pertussis, acel(Tdap) 01/14/07 Given influenza virus vaccine, inactivated 12/15/15 Gi yessica influenza virus vaccine, inactivated [...] drug. Start Date: 01/04/21 Status: Ordered lamotrigine 150 mg oral tablet 1 tablet = 150 mg, By Mouth, Daily in AM, Rx by [facility], 0 Refills, Maintenance, 12/01/20 13:52:00 EST, Partial fill upon patient request if the prescription is for a schedule II opioiddrug. Start Date: 12/01/20 Status: Ordered Mirena 52 mg intrauterine device 1 each = 52 mg, Once, 0 Refills, Maintenance, 04/28/19 14:03:15 EDT Start Date: 04/28/19 Status: Ordered Narcan 4 mg/0.1 mL nasal spray = 4 mg, Nares, Both, Once, may repeat every 2 to 3 minutes until patient responds, # 2 each, 5 Refills, Soft Stop, 12/01/20 13:54:00 EST, [place], [facility] #[id number], Partial fill upon patientrequest if the prescription is for a schedule II op... Start Date: 12/01/20 Status: Ordered Sertraline = 175 mg, By Mouth, Daily, Rx by [facility], 0 Refills, Maintenance, 01/04/21 14:16:00 EST, Partial fill upon patient request if the prescription is for a schedule II opioid drug. Start Date: 01/04/21 Status: Ordered traZODone 50 mg oral tablet 50 mg, 1, tablet, By Mouth, Daily at bedtime, Refills 0, Maintenance, 01/04/21 14:15:00 EST, Partial fill upon patient request if the prescription is for a schedule II opioid drug. Start Date: 01/04/21 Status: Ordered ZyrTEC 10 mg oral tablet 1 tablet = 10 mg, By Mouth, Daily, PRN seasonal allergies, # 30 tablet, 5 Refills, Maintenance, 01/24/21 13:55:00 EDT, [facility] #[id number], 173, cm, 12/04/20 15:25:00 EST, Height, 97.5, [...]
--- OUTSIDE RECORDS SUMMARY | 2023-12-05 00:31 | XMS_ITS | Continuity of Care Document ---
Author Name Unknown Organization [facility] Address [address] [place] [address]- Care Team Providers Care Mailhouse Operator Name Role Phone Diane Frank MD Primary Care Physician [facility]s): 01/11/22 - 05/11/22 [facility] [address] [place], [place] [address] Attending Physician: Diane Frank MD Allergies, Adverse [...] 300 mg, By Mouth, Daily, Rx by [facility], 0 Refills, Maintenance, 12/01/20 13:52:00 EST, Partial fill upon patient request if the prescription is for a schedule II opioid drug. Start Date: 12/01/20 Status: Ordered Hair, Skin & Nails 5 mg oral capsule 1 capsule = 5 mg, By Mouth, Daily, # 30 capsule, 0 Refills, Maintenance, 01/09/22 11:26:00 EST, [facility] #[id number], Partial fill upon patient request if the [...] 5 Refills, Soft Stop, 12/01/20 13:54:00 EST, [place], [facility] #[id number], Partial fill upon patientrequest if the prescription is for a schedule II op... Start Date: 12/01/20 Status: Ordered ProAir HFA 90 mcg/inh inhalation aerosol with adapter 2, puffs, Inhalation, Every 6 hours, PRN, # 8.5 Gm, Refills 5, Route to Pharmacy Electronically, NCPDP_[id number], [facility] #[id number], 173, cm, 01/09/22 11:00:00 EST, Height, 97.5, kg, 12/04/20 15:25:00 EST, Dry Weight Start Date: 01/29/22 Status: Ordered Sertraline = 175 mg, By Mouth, Daily, Rx by [facility], 0 Refills, Maintenance, 01/04/21 14:16:00 EST, Partial fill upon patient request if the prescription is for a schedule II opioid drug. Start Date: 01/04/21 Status: Ordered ZyrTEC 10 mg oral tablet 1 tablet = 10 mg, By Mouth, Daily, PRN seasonal allergies, # 30 tablet, 5 Refills, Maintenance, 01/09/22 11:43:00 EST, [facility] #[id number], 173, cm, 01/09/22 11:00:00 EST, Height, 97.5, [...]
--- OUTSIDE RECORDS SUMMARY | 2023-12-05 00:31 | XMS_ITS | Continuity of Care Document ---
Author Name Unknown Organization [facility] sidra Address [address] [place] [address] [address] [place] [address]- Care Team Providers Care Photographic Processor Name Role Phone Becky Ball MD Primary Care Physician [facility] Date[facility]s): 12/28/20 - 01/27/21 [facility] Surgery [address] [place] [address] Drive [address] [place] [address]- Allergies, Adverse Reactions, Alerts Substance Reaction Severity [...] 300 mg, By Mouth, Daily, Rx by [facility], 0 Refills, Maintenance, 12/01/20 13:52:00 [...] By Mouth, Daily in AM, Rx by [facility], 0 Refills, Maintenance, 12/01/20 13:52:00 [...] 5 Refills, Soft Stop, 12/01/20 13:54:00 EST, [place], [facility] #[id number], Partial fill upon patientrequest if the prescription is for a schedule II op... Start Date: 12/01/20 Status: Ordered Sertraline = 175 mg, By Mouth, Daily, Rx by [facility], 0 Refills, Maintenance, 01/04/21 [...] tablet, 5 Refills, Maintenance, 01/24/21 13:55:00 EDT, [facility] #[id number], 173, cm, 12/04/20 15:25:00 EST, Height, 97.5, [...]
--- OUTSIDE RECORDS SUMMARY | 2023-12-05 00:31 | XMS_ITS | Continuity of Care Document ---
Author Name Unknown Organization [facility] sidra Address [address] [place] [address] [address] [place] [address]- Care Team Providers Care Flatbed Owner Operator Name Role Phone Lizzy LEO, Becky Primary Care Physician [phone] [facility] Date[facility]s): 02/14/21 - 03/16/21 [facility] Surgery [address] [place] [address] Drive [address] [place] [address]- Allergies, Adverse Reactions, Alerts Substance Reaction Severity [...] By Mouth, Daily at bedtime, Rx by [facility], 0 Refills, Maintenance,02/15/21 10:47:00 EDT, [...] 5 Refills, Soft Stop, 12/01/20 13:54:00 EST, [place], [facility] #[id number], Partial fill upon patientrequest if the prescription [...] tablet, 5 Refills, Maintenance, 01/24/21 13:55:00 EDT, [facility] #[id number], 173, cm, 12/04/20 15:25:00 EST, Height, 97.5, [...]
--- OUTSIDE RECORDS SUMMARY | 2023-12-05 00:32 | XMS_ITS | Continuity of Care Document ---
Author Name Unknown Organization [facility] Address [address] [place] [address]- Care Team Providers Care Game Designer Name Role Phone Becky Ball MD Primary Care Physician [facility] Date(s): 04/04/21 - 04/11/21 [facility] [address] [place], [place] [address] Attending Physician: Becky Ball MD Allergies, Adverse [...] 5 Refills, Soft Stop, 12/01/20 13:54:00 EST, [place], [facility] #[id number], Partial fill upon patientrequest if the prescription [...] 30 tablet, 5 Refills, Maintenance, 01/24/21 [facility]55[id number], 173, cm, 12/04/20 15:25:00 EST, Height, 97.5, [...]
--- OUTSIDE RECORDS SUMMARY | 2023-12-05 00:32 | XMS_ITS | Continuity of Care Document ---
Author Name Unknown Organization [facility] Address [address] [place] [address]- Care Team Providers Care Nc Machinist Name Role Phone Zac LEO, Diane Parekh Primary Care Physician [phone] Encounter [facility] Date(s): 07/12/23 - 11/09/23 [facility] [address] [place], [place] [address] Attending Physician: Diane Frank MD Allergies, Adverse [...] 17:32:00 EDT, Aerosol, Route to Pharmacy Electronically, [id number], [facility] #[id number], [facility] available, 173... Start Date: 03/06/23 Stop Date: 05/05/23 Status: Ordered buPROPion 300 mg/24 hours (XL) oral tablet, extended release 1 tablet = 300 mg, By Mouth, Daily, Rx by [facility], 0 Refills, Maintenance, 12/01/20 13:52:00 EST, Partial fill upon patient request if the prescription is for a schedule II opioid drug. Start Date: 12/01/20 Status: Ordered Hair, Skin & Nails 5 mg oral capsule 1 capsule = 5 mg, By Mouth, Daily, # 30 capsule, 0 Refills, Maintenance, 01/09/22 11:26:00 EST, [facility] #[id number], Partial fill upon patient request if the [...] 5 Refills, Soft Stop, 12/01/20 13:54:00 EST, [place], [facility] #[id number], Partial fill upon patientrequest if the prescription is for a schedule II op... Start Date: 12/01/20 Status: Ordered Paxlovid 150 mg-100 mg oral tablet See Instructions, 300mg nirmatrelvir (two 150mg tablets) with 100mg ritonavir (one tablet). All 3 tablets taken together twice daily for 5 days, with or without food, # 30 tablet, 0 Refills, Maintenance, 05/26/22 9:41:00 EDT, [facility] 3,... Start Date: 05/26/22 Status: Ordered [...] tablet, 5 Refills, Maintenance, 03/05/23 14:53:00 EDT, [facility] #[id number], 173, cm, 04/10/22 13:09:00 EDT, Height Start [...] Personnel Name: Zac LEO, Diane Parekh Position: [facility] Physician - Primary Care Member Role: PCP Address: Address: [address] [place] [address] Adult & Pediatric [address] Name: Leonie FAULKNER, Rosalina Position: [facility] RN Member Role: Primary Care Nurse Care Team Related Persons Name: JEFFREY RODRIGUEZ Address: home [address] [place], [place] Name: SARATH GILLILAND Address: home [address] [place], [place] Name: SHELDON GILLILAND Address: [address] Address: [address] [place] [address]
--- OUTSIDE RECORDS SUMMARY | 2023-12-05 00:32 | XMS_ITS | Continuity of Care Document ---
Author Name Unknown Organization [facility] Address [address] [place] [address]- Care Team Providers Care Ski Top Trimmer Name Role Phone Lizzy LEO, Becky Primary Care Physician [facility]s): 01/04/21 - 02/03/21 [facility] [address] [place], [place] [address] Allergies, Adverse Reactions, Alerts [...] 300 mg, By Mouth, Daily, Rx by [facility], 0 Refills, Maintenance, 12/01/20 13:52:00 [...] By Mouth, Daily in AM, Rx by [facility], 0 Refills, Maintenance, 12/01/20 13:52:00 [...] 5 Refills, Soft Stop, 12/01/20 13:54:00 EST, [place], [facility] #[id number], Partial fill upon patientrequest if the prescription is for a schedule II op... Start Date: 12/01/20 Status: Ordered Sertraline = 175 mg, By Mouth, Daily, Rx by [facility], 0 Refills, Maintenance, [...] tablet, 5 Refills, Maintenance, 01/24/21 13:55:00 EDT, [facility] #[id number], 173, cm, 12/04/20 15:25:00 EST, Height, 97.5, [...]
--- OUTSIDE RECORDS SUMMARY | 2023-12-05 00:32 | XMS_ITS | Continuity of Care Document ---
Author Name Unknown Organization [facility] ter Address [address] [place] [address]- Care Team Providers Care Lift Slab Operator Name Role Phone Lizzy LEO, Becky Primary Care Physician [facility] Date(s): 01/19/20 - 03/27/[address] [address]- [facility] Attending Physician: Anuj Aranda MD Admitting Physician: Anuj Aranda MD Allergies, Adverse Reactions, Alerts Substance Reaction [...] tablet, 0 Refills, Maintenance, 01/06/20 8:04:00 EST, [facility] #[id number], 1 tablet By Mouth 2 times a [...] Daily, # 90 tablet, 1 Refills, Maintenance, 03/16/20 9:55:00 EDT, [place], [facility] #[id number], 173, cm, 01/31/20 14:00:00 EDT, Height, 86.6, [...] Refills, Maintenance, 03/16/20 9:55:00 EDT, ER Tablet, [facility] #[id number], 173, cm, 01/31/20 14:00:00 EDT, Height, 86.6, kg, 12/02/19 9:54:00 EST, Dry Weight Start Date: 03/16/20 Stop Date: 09/12/20 Status: Ordered ZyrTEC 10 mg oral tablet 1 tablet = 10 mg, By Mouth, Daily, PRN seasonal allergies, # 30 tablet, 5 Refills, Maintenance, 03/16/20 9:54:00 EDT, [facility] #[id number], 173, cm, 01/31/20 14:00:00 EDT, Height, 86.6, kg, 12/02/19 9:54:00 EST, Dry Weight Start Date: 03/16/20 Status: Ordered Problem List Condition Effective Dates Status Health Status Inform ant Cholelithiasis (gallstones)(Confirmed) Active Depression/Anxiety(Confirmed) Active Tobacco use(Confirmed) Active Social History Social History Type Response Smoking Status Current every day mel mark entered on: 12/16/15 Sex
--- OUTSIDE RECORDS SUMMARY | 2023-12-05 00:32 | XMS_ITS | Continuity of Care Document ---
Author Name Unknown Organization [facility] Address [address] [place] [address]- Care Team Providers Care Liver Trimmer Name Role Phone Zac LEO, Diane Parekh Primary Care Physician [phone] [facility]s): 07/13/23 - 08/12/23 [facility] [address] [place], [place] [address] Allergies, Adverse Reactions, Alerts Substance [...] 17:32:00 EDT, Aerosol, Route to Pharmacy Electronically, [id number], [facility] #[id number], [facility] not available, 173... Start Date: 03/06/23 Stop Date: 05/05/23 Status: Ordered buPROPion 300 mg/24 hours (XL) oral tablet, extended release 1 tablet = 300 mg, By Mouth, Daily, Rx by [facility], 0 Refills, Maintenance, 12/01/20 13:52:00 EST, Partial fill upon patient request if the prescription is for a schedule II opioid drug. Start Date: 12/01/20 Status: Ordered Hair, Skin & Nails 5 mg oral capsule 1 capsule = 5 mg, By Mouth, Daily, # 30 capsule, 0 Refills, Maintenance, 01/09/22 11:26:00 EST, [facility] #[id number], Partial fill upon patient request if the [...] 5 Refills, Soft Stop, 12/01/20 13:54:00 EST, [place], [facility] #[id number], Partial fill upon patientrequest if the prescription is for a schedule II op... Start Date: 12/01/20 Status: Ordered Paxlovid 150 mg-100 mg oral tablet See Instructions, 300mg nirmatrelvir (two 150mg tablets) with 100mg ritonavir (one tablet). All 3 tablets taken together twice daily for 5 days, with or without food, # 30 tablet, 0 Refills, Maintenance, 05/26/22 9:41:00 EDT, [facility] 3,... Start Date: 05/26/22 Status: Ordered Sertraline [...] tablet, 5 Refills, Maintenance, 03/05/23 14:53:00 EDT, [facility] #[id number], 173, cm, 04/10/22 13:09:00 EDT, Height Start [...] Personnel Name: Zac LEO, Diane Parekh Position: [facility] Physician - Primary Care Member Role: PCP Address: Address: [address] [place] [address] Adult & Pediatric [address] Name: Rosalina Hadley RN Position: [facility] RN Member Role: Primary Care Nurse Care Team Related Persons Name: JEFFREY RODRIGUEZ Address: home [address] [place], [place] Name: SARATH GILLILAND Address: home [address] [place], [place] Name: SHELDON GILLILAND Address: [address] Address: [address] [place] [address]
--- OUTSIDE RECORDS SUMMARY | 2023-12-05 00:32 | XMS_ITS | Continuity of Care Document ---
Author Name Unknown Organization [facility] Address [address] [place] [address]- Care Team Providers Care Cpa Tax Name Role Phone Lizzy LEO, Becky Primary Care Physician [facility](s): 01/24/21 - 02/23/21 [facility] [address] [place], [place] [address] Allergies, Adverse Reactions, Alerts Substance Reaction [...] 300 mg, By Mouth, Daily, Rx by [facility], 0 Refills, Maintenance, 12/01/20 13:52:00 [...] By Mouth, Daily at bedtime, Rx by [facility], 0 Refills, Maintenance,02/15/21 10:47:00 EDT, [...] 5 Refills, Soft Stop, 12/01/20 13:54:00 EST, [place], [facility] #[id number], Partial fill upon patientrequest if the prescription [...] tablet, 5 Refills, Maintenance, 01/24/21 13:55:00 EDT, [facility] #[id number], 173, cm, 12/04/20 15:25:00 EST, Height, 97.5, [...]
--- OUTSIDE RECORDS SUMMARY | 2023-12-05 00:32 | XMS_ITS | Continuity of Care Document ---
Author Name Unknown Organization [facility] Address [address] [place] [address]- Care Team Providers Care Senior Sales Operations Analyst Name Role Phone Diane Frank MD Primary Care Physician [facility] 04/10/22 - 05/10/22 [facility] [address] [place], [place] [address] Attending Physician: Armando Montero Admitting Physician: AdmtrArmando Referring Physician: Admtr, ArBrittany Allergies, Adverse Reactions, Alerts Substance Reaction Severity [...] 300 mg, By Mouth, Daily, Rx by [facility], 0 Refills, Maintenance, 12/01/20 13:52:00 EST, Partial fill upon patient request if the prescription is for a schedule II opioid drug. Start Date: 12/01/20 Status: Ordered Hair, Skin & Nails 5 mg oral capsule 1 capsule = 5 mg, By Mouth, Daily, # 30 capsule, 0 Refills, Maintenance, 01/09/22 11:26:00 EST, [facility] #[id number], Partial fill upon patient request if the [...] 5 Refills, Soft Stop, 12/01/20 13:54:00 EST, [place], [facility] #[id number], Partial fill upon patientrequest if the prescription is for a schedule II op... Start Date: 12/01/20 Status: Ordered ProAir HFA 90 mcg/inh inhalation aerosol with adapter 2, puffs, Inhalation, Every 6 hours, PRN, # 8.5 Gm, Refills 5, Route to Pharmacy Electronically, NCPDP_[id number], [facility] #[id number], 173, cm, 01/09/22 11:00:00 EST, Height, 97.5, [...] tablet, 5 Refills, Maintenance, 01/09/22 11:43:00 EST, [facility] #[id number], 173, cm, 01/09/22 11:00:00 EST, Height, 97.5, [...]
--- OUTSIDE RECORDS SUMMARY | 2023-12-05 00:32 | XMS_ITS | Continuity of Care Document ---
Author Name Unknown Organization [facility] Address [address] [place] [address]- Care Team Providers Care Lifts And Cranes Inspector Name Role Phone Lizzy LEO, Becky Primary Care Physician En[place] [facility] Date(s): 01/04/21 - 01/11/21 [facility] [address] [place], [place] [address] Attending Physician: Becky Ball MD Allergies, Adverse [...] By Mouth, Daily in AM, Rx by [facility], 0 Refills, Maintenance, 12/01/20 13:52:00 [...] 5 Refills, Soft Stop, 12/01/20 13:54:00 EST, [place], [facility] #[id number], Partial fill upon patientrequest if the prescription is for a schedule II op... Start Date: 12/01/20 Status: Ordered Sertraline = 175 mg, By Mouth, Daily, Rx by [facility], 0 Refills, Maintenance, [...] tablet, 5 Refills, Maintenance, 03/16/20 9:54:00 EDT, [facility] #[id number], 173, cm, 01/31/20 14:00:00 EDT, Height, 86.6, [...]
--- OUTSIDE RECORDS SUMMARY | 2023-12-05 00:32 | XMS_ITS | Continuity of Care Document ---
Author Name Unknown Organization [facility] Address [address] [place] [address]- Care Team Providers Care Dental Laboratory Technician Name Role Phone Becky Ball MD Primary Care Physician [facility] Date(s): 12/02/19 - 12/09/19 [facility] [address] [place] [address]- [facility] Attending Physician: Becky Ball MD Allergies, Adverse [...] 1Admin Note: vis form given 06/18/2015 Medications Mirena 52 mg intrauterine device 1 each [...] 1 Refills, Maintenance, 12/02/19 10:10:00EST, ER Tablet, [facility] [address], 173, cm, 12/02/19 9:54:00 EST, Height, 86.6, kg, 209:54:00 EST, Dry Weight Start Date: 12/02/19 Stop Date: 05/30/20 Status: Ordered ZyrTEC 10 mg oral tablet 1 tablet = 10 mg, By Mouth, Daily, PRN seasonal allergies, # 30 tablet, 5 Refills, Maintenance, 12/02/19 10:09:00 EST, [facility] [address], 173, cm, 12/02/19 9:54:00 EST, Height, 86.6, kg, 12/02/19 9:54:00 EST, Dry Weight Start Date: 12/02/19 Status: Ordered Problem List Condition Effective Dates Status Health Status Inform ant Cholelithiasis (gallstones)(Confirmed) Active Depression/Anxiety(Confirmed) Active Tobacco use(Confirmed) Active Vital Signs Most recent to oldest [Reference Range]: 1 Height 173 cm (12/02/19 9:54 AM) Weight 86.6 kg (12/02/19 9:54 AM) Oxygen Saturation [94-100 %] 98 % (12/02/19 9:54 AM) Pulse Rate [55-90 bpm] 84 bpm (12/02/19 9:54 AM) Body Mass Index [18.5-24.99] 28.94 *H* (12/02/19 9:54 AM) Blood Pressure [90-138/55-84 mm Hg] 98/7 0mm Hg (12/02/19 9:54 AM) Temperature [96.8-100.4 DegF] 97.9 DegF (12/02/19 9:54 AM) Mode of Delivery (Oxygen) Room air (12/02/19 9:54 AM) Blood pressure sites Arm, left (12/02/19 9:54 AM) Temperature Route Oral (12/02/19 9:54 AM) Dry Weight 86.6 kg (12/02/19 9:54 AM) Weight Obtained Via Standing scale (12/02/19 9:54 AM) Social History Social History Type Response Smoking Status Current every day mel mark entered on: 12/16/15 Sex
--- OUTSIDE RECORDS SUMMARY | 2023-12-05 00:32 | XMS_ITS | Continuity of Care Document ---
Author Name Unknown Organization [facility] Address [address] [place] [address]- Care Team Providers Care Stewarding Supervisor Name Role Phone Lizzy LEO, Becky Primary Care Physician [facility]s): 01/31/20 - 02/10/20 [facility] [address] [place] [address]- [facility] Attending Physician: Armando Montero Admitting Physician: AdmtrArmando Referring Physician: Admtr, Ar8 Allergies, Adverse Reactions, [...] 0 Refills, Maintenance, 01/06/20 8:04:00 EST, Table[place], [facility] #[id number], 1 tablet By Mouth 2 times a [...] 10:10:00 EST, Tablet, [facility] [address], 173, cm, 12/02/19 9:54:00 EST, Height, [...] tablet, 5 Refills, Maintenance, 12/02/19 10:09:00 EST, [facility] [address], 173, cm, 12/02/19 9:54:00 EST, Height, 86.6, kg, 12/02/19 9:54:00 EST, Dry Weight Start Date: 12/02/19 Status: Ordered Problem List Condition Effective Dates Status Health Status Inform ant Cholelithiasis (gallstones)(Confirmed) Active Depression/Anxiety(Confirmed) Active Tobacco use(Confirmed) Active Social History Social History Type Response Smoking Status Current every day mel mark entered on: 12/16/15 Sex
--- OUTSIDE RECORDS SUMMARY | 2023-12-05 00:32 | XMS_ITS | Continuity of Care Document ---
Author Name Unknown Organization [facility] Address [address] [place] [address]- Care Team Providers Care Cold Strip Feeder Name Role Phone Zac LEO, Diane Parekh Primary Care Physician [facility] 10/26/21 - 11/25/21 [facility] [address] [place], [place] [address] Allergies, Adverse Reactions, Alerts Substance [...] By Mouth, Daily at bedtime, Rx by [facility], 0 Refills, Maintenance,02/15/21 10:47:00 EDT, [...] 5 Refills, Soft Stop, 12/01/20 13:54:00 EST, [place], [facility] #[id number], Partial fill upon patientrequest if the prescription [...] tablet, 5 Refills, Maintenance, 01/24/21 13:55:00 EDT, [facility] #[id number], 173, cm, 12/04/20 15:25:00 EST, Height, 97.5, [...]
--- OUTSIDE RECORDS SUMMARY | 2023-12-05 00:32 | XMS_ITS | Continuity of Care Document ---
Author Name Unknown Organization [facility] Address [address] [place] [address]- Care Team Providers Care Business Area Manager Name Role Phone Lizzy LEO, Becky Primary Care Physician Encounter [facility] [place] Date(s): 02/17/21 - 02/24/21 [facility] [address] [place], [place] [address] Attending Physician: Not on Staff, Attending MD [...] Mouth, Daily at bedtime, Rx by [facility], 0 Refills, Maintenance,02/15/21 10:47:00 EDT, [...] 5 Refills, Soft Stop, 12/01/20 13:54:00 EST, [place], [facility] #[id number], Partial fill upon patientrequest if the prescription [...] tablet, 5 Refills, Maintenance, 01/24/21 13:55:00 EDT, [facility] #[id number], 173, cm, 12/04/20 15:25:00 EST, Height, 97.5, [...]
--- OUTSIDE RECORDS SUMMARY | 2023-12-05 00:32 | XMS_ITS | Continuity of Care Document ---
Author Name Unknown Organization [facility] Address [address] [place] [address]- Care Team Providers Care House Shorer Name Role Phone Diane Frank MD Primary Care Physician Encounter [facility] [place] [facility] Date(s): 04/10/22 - 04/17/22 [facility] [address] [place] [address]- Encounter Diagnosis Right ankle sprain(Discharge Diagnosis) - 04/10/22 Right knee sprain(Discharge Diagnosis) - 04/10/22 Attending Physician: Shiv Waite DO Allergies, Adverse Reactions, Alerts Substance Reaction Severity [...] mg, By Mouth, Daily, Rx by [facility], 0 Refills, Maintenance, 12/01/20 13:52:00 EST, Partial fill upon patient request if the prescription is for a schedule II opioid drug. Start Date: 12/01/20 Status: Ordered Hair, Skin & Nails 5 mg oral capsule 1 capsule = 5 mg, By Mouth, Daily, # 30 capsule, 0 Refills, Maintenance, 01/09/22 11:26:00 EST, [facility] #[id number], Partial fill upon patient request if the [...] 5 Refills, Soft Stop, 12/01/20 13:54:00 EST, [place], [facility] #[id number], Partial fill upon patientrequest if the prescription is for a schedule II op... Start Date: 12/01/20 Status: Ordered ProAir HFA 90 mcg/inh inhalation aerosol with adapter 2, puffs, Inhalation, Every 6 hours, PRN, # 8.5 Gm, Refills 5, Route to Pharmacy Electronically, [id number], [facility] #[id number], 173, cm, 01/09/22 11:00:00 EST, Height, 97.5, [...] tablet, 5 Refills, Maintenance, 01/09/22 11:43:00 EST, [facility] #[id number], 173, cm, 01/09/22 11:00:00 EST, Height, 97.5, kg, 12/04/20 15:25:00 EST, Dry Weight Start Date: 01/09/22 Status: Ordered Problem List Condition Effective Dates Status Health Status Inform ant Cholelithiasis (gallstones)(Confirmed) Active Depression/Anxiety(Confirmed) Active Obese class I(Confirmed) Active Tobacco use(Confirmed) Active Diagnosis Diagnosis Type Effective Dates Health Status Cl inical Service Informant Right ankle sprain Discharge Diagnosis 04/10/22 Right knee sprain Discharge Diagnosis 04/10/22 Vital Signs Most recent to oldest [Reference Range]: 1 Height 173 cm (04/10/22 1:09 PM) Oxygen Saturation [94-100 %] 100 % (04/10/22 1:09 PM) Pulse Rate [55-90 bpm] 86 bpm (04/10/22 1:09 PM) Blood Pressure [90-138/55-84 mm Hg] 122/ 78mm Hg (04/10/22 1:09 PM) Respiratory Rate [16-30 br/min] 17 br/mi n (04/10/22 1:09 PM) Temperature [96.8-100.4 DegF] 97.3 DegF (04/10/22 1:09 PM) Mode of Delivery (Oxygen) Room air (04/10/22 1:09 PM) Social History Social History Type Response Smoking Status 5-9 cigarettes (betw een 1/4 to 1/2 pack)/day in last 30 days; Other: trying to quit - down from 15 to 2cig daily; entered on: 01/09/22 Sex
--- OUTSIDE RECORDS SUMMARY | 2023-12-05 00:32 | XMS_ITS | Continuity of Care Document ---
Author Name Unknown Organization [facility] Address [address] [place] [address]- Care Team Providers Care Consumer Loan Underwriter Name Role Phone Lizzy LEO, Becky Primary Care Physician [phone] Encounter [facility] Date(s): 12/28/20 - 01/27/21 [facility] [address] [place], [place] [address] Allergies, Adverse Reactions, Alerts Substance Reaction [...] 300 mg, By Mouth, Daily, Rx by [facility], 0 Refills, Maintenance, 12/01/20 13:52:00 [...] By Mouth, Daily in AM, Rx by [facility], 0 Refills, Maintenance, 12/01/20 13:52:00 [...] 5 Refills, Soft Stop, 12/01/20 13:54:00 EST, [place], [facility] #[id number], Partial fill upon patientrequest if the prescription is for a schedule II op... Start Date: 12/01/20 Status: Ordered Sertraline = 175 mg, By Mouth, Daily, Rx by [facility], 0 Refills, Maintenance, 01/04/21 [...] tablet, 5 Refills, Maintenance, 01/24/21 13:55:00 EDT, [facility] #[id number], 173, cm, 12/04/20 15:25:00 EST, Height, 97.5, [...]
--- OUTSIDE RECORDS SUMMARY | 2023-12-05 00:32 | XMS_ITS | Continuity of Care Document ---
Author Name Unknown Organization [facility] Address [address] [place] [address]- Care Team Providers Care Software Engineer Name Role Phone Lzizy LEO, Becky Primary Care Physician Encounter [facility] Date(s): 10/18/20 - 11/17/20 [facility] [address] [place], [place] [address] Allergies, Adverse Reactions, Alerts Substance Reaction [...] 0 Refills, Maintenance, 01/06/20 8:04:00 EST, Table[place], [facility] #[id number], 1 tablet By Mouth 2 times a day,Instr:as directed on package labeling, 173, cm, ... Start Date: 01/06/20 Status: Ordered ibuprofen 800 mg oral tablet 800 mg, 1, tablet, By Mouth, Every 8 hours, # 30 tablet, Refills 0, Tot. Refills 0, Maintenance, 09/30/20 12:06:00 EST, Route to Pharmacy Electronically, [facility] #[id number], Partial fill upon patient request, 172, cm, 09/30/20 9:31:00 EST, He... Start Date: 09/30/20 Status: Ordered Mirena 52 mg intrauterine device [...] 1 Refills, Maintenance, 07/23/20 10:15:00 EDT, Tablet, [facility] #[id number], 173, cm, 01/31/20 14:00:00 EDT, Height, 86.6, kg, 12/02/19 9:54:00 EST, Dry Weight Start Date: 07/23/20 Stop Date: 01/19/21 Status: Ordered Tylenol 325 mg oral capsule 2 capsule = 650 mg, By Mouth, Every 6 hours, # 30 capsule, 0 Refills, Maintenance, 09/30/20 12:06:00 EST, [facility] #[id number], Partial fill upon patient request, 172, cm, 09/30/20 9:31:00 EST, Height, 96.1, kg, 09/30/20 9:31:00 EST, Dry Weight Start Date: 09/30/20 Status: Ordered Vivitrol 380 mg intramuscular injection, extended release = 380 mg, Intramuscular, Every 28 days, Rx by [facility], 0 Refills, Maintenance, 10/17/1811:54:34 EST Start Date: 10/17/18 Status: Ordered Wellbutrin XL 150 mg/24 hours oral tablet, extended release 1 tablet = 150 mg, By Mouth, Every 24 hours, # 90 tablet, 1 Refills, Maintenance, 07/23/20 10:15:00EDT, ER Tablet, [facility] #[id number], 173, cm, 01/31/20 14:00:00 EDT, Height, 86.6, kg, 12/02/19 9:54:00 EST, Dry Weight Start Date: 07/23/20 Stop Date: 01/19/21 Status: Ordered ZyrTEC 10 mg oral tablet 1 tablet = 10 mg, By Mouth, Daily, PRN seasonal allergies, # 30 tablet, 5 Refills, Maintenance, 03/16/20 9:54:00 EDT, [facility] #[id number], 173, cm, 01/31/20 14:00:00 EDT, Height, 86.6, kg, 12/02/19 9:54:00 EST, Dry Weight Start Date: 03/16/20 Status: Ordered Problem List Condition Effective Dates Status Health Status Inform ant Cholelithiasis (gallstones)(Confirmed) Active Depression/Anxiety(Confirmed) Active Tobacco use(Confirmed) Active Social History Social History Type Response Smoking Status Current every day mel mark entered on: 12/16/15 Sex
--- OUTSIDE RECORDS SUMMARY | 2023-12-05 00:32 | XMS_ITS | Continuity of Care Document ---
Author Name Unknown Organization [facility] Address [address] [place] [address]- Care Team Providers Care Voice Teacher Name Role Phone Lizzy LEO, Becky Primary Care Physician [phone] Encounter [facility] Date(s): 12/24/20 - 01/23/21 [facility] [address] [place], [place] [address] Allergies, Adverse Reactions, Alerts Substance [...] 300 mg, By Mouth, Daily, Rx by [facility], 0 Refills, Maintenance, 12/01/20 13:52:00 [...] By Mouth, Daily in AM, Rx by [facility], 0 Refills, Maintenance, 12/01/20 13:52:00 [...] 5 Refills, Soft Stop, 12/01/20 13:54:00 EST, [place], [facility] #[id number], Partial fill upon patientrequest if the prescription is for a schedule II op... Start Date: 12/01/20 Status: Ordered Sertraline = 175 mg, By Mouth, Daily, Rx by [facility], 0 Refills, Maintenance, [...] tablet, 5 Refills, Maintenance, 03/16/20 9:54:00 EDT, [facility] #[id number], 173, cm, 01/31/20 14:00:00 EDT, Height, 86.6, [...]
--- OUTSIDE RECORDS SUMMARY | 2023-12-05 00:32 | XMS_ITS | Continuity of Care Document ---
Author Name Unknown Organization [facility] Address [address] [place] [address]- Care Team Providers Care Lumber Yard Worker Name Role Phone Lizzy LEO, Becky Primary Care Physician Encounter [facility] Date(s): 07/23/20 - 08/22/20 [facility] [address] [place] [address]- [facility] Allergies, Adverse Reactions, Alerts Substance Reaction [...] 0 Refills, Maintenance, 01/06/20 8:04:00 EST, Table[place], [facility] #[id number], 1 tablet By Mouth 2 times a [...] 1 Refills, Maintenance, 07/23/20 10:15:00 EDT, Tablet, [facility] #[id number], 173, cm, 01/31/20 14:00:00 EDT, Height, 86.6, [...] 1 Refills, Maintenance, 07/23/20 10:15:00EDT, ER Tablet, [facility] #[id number], 173, cm, 01/31/20 14:00:00 EDT, Height, 86.6, kg, 12/02/19 9:54:00 EST, Dry Weight Start Date: 07/23/20 Stop Date: 01/19/21 Status: Ordered ZyrTEC 10 mg oral tablet 1 tablet = 10 mg, By Mouth, Daily, PRN seasonal allergies, # 30 tablet, 5 Refills, Maintenance, 03/16/20 9:54:00 EDT, [facility] #[id number], 173, cm, 01/31/20 14:00:00 EDT, Height, 86.6, kg, 12/02/19 9:54:00 EST, Dry Weight Start Date: 03/16/20 Status: Ordered Problem List Condition Effective Dates Status Health Status Inform ant Cholelithiasis (gallstones)(Confirmed) Active Depression/Anxiety(Confirmed) Active Tobacco use(Confirmed) Active Social History Social History Type Response Smoking Status Current every day mel mark entered on: 12/16/15 Sex
--- OUTSIDE RECORDS SUMMARY | 2023-12-05 00:32 | XMS_ITS | Continuity of Care Document ---
Author Name Unknown Organization [facility] Address [address] [place] [address]- Care Team Providers Care Security Checker Name Role Phone Zac LEO, Diane Parekh Primary Care Physician [phone] Encounter [facility] Date(s): 10/24/21 - 11/23/21 [facility] [address] [place], [place] [address] Allergies, Adverse Reactions, Alerts [...] By Mouth, Daily at bedtime, Rx by [facility], 0 Refills, Maintenance,02/15/21 10:47:00 EDT, [...] 5 Refills, Soft Stop, 12/01/20 13:54:00 EST, [place], [facility] #[id number], Partial fill upon patientrequest [...] tablet, 5 Refills, Maintenance, 01/24/21 13:55:00 EDT, [facility] #[id number], 173, cm, 12/04/20 15:25:00 EST, Height, 97.5, [...]
--- OUTSIDE RECORDS SUMMARY | 2023-12-05 00:32 | XMS_ITS | Continuity of Care Document ---
Author Name Unknown Organization [facility] Address [address] [place] [address]- Care Team Providers Care Hop Farmer Name Role Phone Lizzy LEO, Becky Primary Care Physician [facility]counter [facility] Date(s): 12/24/20 - 01/23/21 [facility] [address] [place], [place] [address] Allergies, Adverse Reactions, Alerts Substance [...] 300 mg, By Mouth, Daily, Rx by [facility], 0 Refills, Maintenance, 12/01/20 13:52:00 [...] By Mouth, Daily in AM, Rx by [facility], 0 Refills, Maintenance, 12/01/20 13:52:00 [...] 5 Refills, Soft Stop, 12/01/20 13:54:00 EST, [place], [facility] #[id number], Partial fill upon patientrequest if the prescription is for a schedule II op... Start Date: 12/01/20 Status: Ordered Sertraline = 175 mg, By Mouth, Daily, Rx by [facility], 0 Refills, Maintenance, [...] tablet, 5 Refills, Maintenance, 03/16/20 9:54:00 EDT, [facility] #[id number], 173, cm, 01/31/20 14:00:00 EDT, Height, 86.6, [...]
--- OUTSIDE RECORDS SUMMARY | 2023-12-05 00:32 | XMS_ITS | Continuity of Care Document ---
Author Name Unknown Organization [facility] Address [address] [place] [address]- Care Team Providers Care Early Head Start Director Name Role Phone Diane Frank MD Primary Care Physician [facility]counter [facility] Date(s): 11/28/21 - 12/28/21 [facility] [address] [place], [place] [address] Allergies, Adverse Reactions, Alerts Substance Reaction Severity [...] 300 mg, By Mouth, Daily, Rx by [facility], 0 Refills, Maintenance, 12/01/20 13:52:00 [...] By Mouth, Daily at bedtime, Rx by [facility], 0 Refills, Maintenance,02/15/21 10:47:00 EDT, [...] 5 Refills, Soft Stop, 12/01/20 13:54:00 EST, [place], [facility] #[id number], Partial fill upon patientrequest if the prescription [...] tablet, 5 Refills, Maintenance, 01/24/21 13:55:00 EDT, [facility] #[id number], 173, cm, 12/04/20 15:25:00 EST, Height, 97.5, [...]
--- OUTSIDE RECORDS SUMMARY | 2023-12-05 00:32 | XMS_ITS | Continuity of Care Document ---
Author Name Unknown Organization [facility] Address [address] [place] [address]- Care Team Providers Care Deputy Probation Officer Name Role Phone Lizzy LEO, Becky Primary Care Physician [phone] [place] [facility](s): 12/15/20 - 12/22/20 [facility] [address] [place], [place] [address] Attending Physician: Becky Ball MD Allergies, Adverse [...] 300 mg, By Mouth, Daily, Rx by [facility], 0 Refills, Maintenance, 12/01/20 13:52:00 EST, Partial fill upon patient request if the prescription is for a schedule II opioid drug. Start Date: 12/01/20 Status: Ordered lamotrigine 150 mg oral tablet 1 tablet = 150 mg, By Mouth, Daily in AM, Rx by [facility], 0 Refills, Maintenance, 12/01/20 13:52:00 [...] 5 Refills, Soft Stop, 12/01/20 13:54:00 EST, [place], [facility] #[id number], Partial fill upon patientrequest if the prescription is for a schedule II op... Start Date: 12/01/20 Status: Ordered sertraline 100 mg oral tablet 1.5 tablet = 150 mg, By Mouth, Daily, Rx by [facility], # 30 tablet, 0 Refills, Maintenance, 12/01/20 13:55:00 EST, Tablet, Partial fill upon patient request if the prescription is for a schedule II opioid drug. Start Date: 12/01/20 Status: Ordered ZyrTEC 10 mg oral tablet 1 tablet = 10 mg, By Mouth, Daily, PRN seasonal allergies, # 30 tablet, 5 Refills, Maintenance, 03/16/20 9:54:00 EDT, [facility] #[id number], 173, cm, 01/31/20 14:00:00 EDT, Height, 86.6, [...]
--- OUTSIDE RECORDS SUMMARY | 2023-12-05 00:32 | XMS_ITS | Continuity of Care Document ---
Author Name Unknown Organization [facility] Address [address] [place] [address]- Care Team Providers Care Protective Service Specialist Name Role Phone Diane Frank MD Primary Care Physician [facility] Date(s): 05/25/22 - 06/24/22 [facility] [address] [place], [place] [address] Attending Physician: Admdeneen, Armando Admitting Physician: Admtr, Armando Referring Physician: Admtr, [...] influenza virus vaccine, inactivated 1 12/15/15 Gi ysesica influenza virus vaccine, inactivated 07/15/12 Give n [...] 300 mg, By Mouth, Daily, Rx by [facility], 0 Refills, Maintenance, 12/01/20 13:52:00 EST, Partial fill upon patient request if the prescription is for a schedule II opioid drug. Start Date: 12/01/20 Status: Ordered Hair, Skin & Nails 5 mg oral capsule 1 capsule = 5 mg, By Mouth, Daily, # 30 capsule, 0 Refills, Maintenance, 01/09/22 11:26:00 EST, [facility] #[id number], Partial fill upon patient request if the [...] 5 Refills, Soft Stop, 12/01/20 13:54:00 EST, [place], [facility] #[id number], Partial fill upon patientrequest if the prescription is for a schedule II op... Start Date: 12/01/20 Status: Ordered Paxlovid 150 mg-100 mg oral tablet See Instructions, 300mg nirmatrelvir (two 150mg tablets) with 100mg ritonavir (one tablet). All 3 tablets taken together twice daily for 5 days, with or without food, # 30 tablet, 0 Refills, Maintenance, 05/26/22 9:41:00 EDT, [facility],... Start Date: 05/26/22 Status: Ordered ProAir HFA 90 mcg/inh inhalation aerosol with adapter 2, puffs, Inhalation, Every 6 hours, PRN, # 8.5 Gm, Refills 5, Route to Pharmacy Electronically, [id number]_[id number], [facility] #[id number], 173, cm, 01/09/22 11:00:00 EST, Height, 97.5, [...] tablet, 5 Refills, Maintenance, 01/09/22 11:43:00 EST, [facility] #[id number], 173, cm, 01/09/22 11:00:00 EST, Height, 97.5, [...]
--- OUTSIDE RECORDS SUMMARY | 2023-12-05 00:32 | XMS_ITS | Continuity of Care Document ---
Author Name Unknown Organization [facility] Address [address] [place] [address]- Care Team Providers Care Unit Secy Name Role Phone Becky Ball MD Primary Care Physician [phone] En[place] [facility] [place] Date(s): 01/23/20 - 01/30/20 [facility] [address] [place] [address]- [facility] Encounter Diagnosis Burning sensation of skin(Discharge Diagnosis) - 01/23/20 Attending Physician: Alverto Massey MD Referring Physician: [...] 0 Refills, Maintenance, 01/06/20 8:04:00 EST, [place], [facility] #[id number], 1 tablet By Mouth 2 times a [...] 10:10:00 EST, Tablet, [facility] [address], 173, cm, 12/02/19 9:54:00 EST, Height, [...] tablet, 5 Refills, Maintenance, 12/02/19 10:09:00 EST, [facility] [address], 173, cm, 12/02/19 9:54:00 EST, Height, 86.6, kg, 12/02/19 9:54:00 EST, Dry Weight Start Date: 12/02/19 Status: Ordered Problem List Condition Effective Dates Status Health Status Inform ant Cholelithiasis (gallstones)(Confirmed) Active Depression/Anxiety(Confirmed) Active Tobacco use(Confirmed) Active Diagnosis Diagnosis Type Effective Dates Health Status Cl inical Service Informant Burning sensation of skin Discharge Diagnosis 01/23/20 Vital Signs Most recent to oldest [Reference Range]: 1 Height 173 cm (01/23/20 4:13 PM) Oxygen Saturation [94-100 %] 100 % (01/23/20 4:13 PM) Pulse Rate [55-90 bpm] 73 bpm (01/23/20 4:13 PM) Blood Pressure [90-138/55-84 mm Hg] 110/ 72mm Hg (01/23/20 4:13 PM) Respiratory Rate [16-30 br/min] 18 br/mi n (01/23/20 4:13 PM) Temperature [96.8-100.4 DegF] 98.6 DegF (01/23/20 4:13 PM) Mode of Delivery (Oxygen) Room air (01/23/20 4:13 PM) Blood pressure sites Arm, left (01/23/20 4:13 PM) Temperature Route Oral (01/23/20 4:13 PM) Weight Obtained Via Standing scale (01/23/20 4:13 PM) Dry Weight Obtained Via Standing scale (01/23/20 4:13 PM) Social History Social History Type Response Smoking Status Current every day mel mark entered on: 12/16/15 Sex
--- OUTSIDE RECORDS SUMMARY | 2023-12-05 00:32 | XMS_ITS | Continuity of Care Document ---
Author Name Unknown Organization [facility] Address [address] [place] [address]- Care Team Providers Care Supervisor Network Control Operators Name Role Phone Lizzy LEO, Becky Primary Care Physician Encounter [facility] Date(s): 02/15/21 - 02/22/21 [facility] [address] [place], [place] [address] Attending Physician: Becky Ball MD Allergies, Adverse [...] By Mouth, Daily at bedtime, Rx by [facility], 0 Refills, Maintenance,02/15/21 10:47:00 EDT, [...] 5 Refills, Soft Stop, 12/01/20 13:54:00 EST, [place], [facility] #[id number], Partial fill upon patientrequest if the prescription [...] tablet, 5 Refills, Maintenance, 01/24/21 13:55:00 EDT, [facility] #[id number], 173, cm, 12/04/20 15:25:00 EST, Height, 97.5, [...]
--- OUTSIDE RECORDS SUMMARY | 2023-12-05 00:32 | XMS_ITS | Continuity of Care Document ---
Author Name Unknown Organization [facility] Address [address] [place] [address]- Care Team Providers Care Bale Opener Name Role Phone Diane Frank MD Primary Care Physician [facility] Date(s): 03/05/23 - 04/04/23 [facility] [address] [place], [place] [address] Allergies, Adverse Reactions, Alerts Substance [...] 17:32:00 EDT, Aerosol, Route to Pharmacy Electronically, [id number], [facility] #[id number], [facility] not available, 173... Start Date: 03/06/23 Stop Date: 05/05/23 Status: Ordered buPROPion 300 mg/24 hours (XL) oral tablet, extended release 1 tablet = 300 mg, By Mouth, Daily, Rx by [facility], 0 Refills, Maintenance, 12/01/20 13:52:00 EST, Partial fill upon patient request if the prescription is for a schedule II opioid drug. Start Date: 12/01/20 Status: Ordered Hair, Skin & Nails 5 mg oral capsule 1 capsule = 5 mg, By Mouth, Daily, # 30 capsule, 0 Refills, Maintenance, 01/09/22 11:26:00 EST, [facility] #[id number], Partial fill upon patient request if the [...] 5 Refills, Soft Stop, 12/01/20 13:54:00 EST, [place], [facility] #[id number], Partial fill upon patientrequest if the prescription is for a schedule II op... Start Date: 12/01/20 Status: Ordered Paxlovid 150 mg-100 mg oral tablet See Instructions, 300mg nirmatrelvir (two 150mg tablets) with 100mg ritonavir (one tablet). All 3 tablets taken together twice daily for 5 days, with or without food, # 30 tablet, 0 Refills, Maintenance, 05/26/22 9:41:00 EDT, [facility] 3,... Start Date: 05/26/22 Status: Ordered [...] tablet, 5 Refills, Maintenance, 03/05/23 14:53:00 EDT, [facility] #[id number], 173, cm, 04/10/22 13:09:00 EDT, Height Start [...] Personnel Name: Zac LEO, Diane Parekh Position: [facility] Physician - Primary Care Member Role: PCP Address: Address: [address] [place] [address] Adult & [place] [address]- Name: Rosalina Hadley RN Position: S RN Member Role: Primary Care Nurse Name: Carin Foreman RN Position: [facility] OB RN Member Role: Primary Care Nurse Care Team Related Persons Name: JEFFREY RODRIGUEZ Address: home [address], [place] Name: SARATH GILLILAND Address: home [address], [place] Name: SHELDON GILLILAND Address: [address] Address: [address] [place] [address]
--- OUTSIDE RECORDS SUMMARY | 2023-12-05 00:33 | XMS_ITS | Continuity of Care Document ---
Author Name Unknown Organization [facility] Address [address] [place] [address]- Care Team Providers Care Male Model Name Role Phone Diane Frank MD Primary Care Physician [facility] Date[facility]s): 01/15/22 - 02/14/22 [facility] [address] [place], [place] [address] Allergies, Adverse Reactions, [...] By Mouth, Daily, Rx by [facility], 0 Refills, Maintenance, 12/01/20 13:52:00 EST, Partial fill upon patient request if the prescription is for a schedule II opioid drug. Start Date: 12/01/20 Status: Ordered Hair, Skin & Nails 5 mg oral capsule 1 capsule = 5 mg, By Mouth, Daily, # 30 capsule, 0 Refills, Maintenance, 01/09/22 11:26:00 EST, [facility] #[id number], Partial fill upon patient request if the [...] 5 Refills, Soft Stop, 12/01/20 13:54:00 EST, [place], [facility] #[id number], Partial fill upon patientrequest if the prescription is for a schedule II op... Start Date: 12/01/20 Status: Ordered ProAir HFA 90 mcg/inh inhalation aerosol with adapter 2, puffs, Inhalation, Every 6 hours, PRN, # 8.5 Gm, Refills 5, Route to Pharmacy Electronically, NCPDP_[id number], [facility] #[id number], 173, cm, 01/09/22 11:00:00 EST, Height, 97.5, [...] tablet, 5 Refills, Maintenance, 01/09/22 11:43:00 EST, [facility] #[id number], 173, cm, 01/09/22 11:00:00 EST, Height, 97.5, [...]
--- OUTSIDE RECORDS SUMMARY | 2023-12-05 00:33 | XMS_ITS | Continuity of Care Document ---
Author Name Unknown Organization [facility] Address [address] [place] [address]- Care Team Providers Care Physician Pediatrician Name Role Phone Diane Frank MD Primary Care Physician [phone] Encounter [facility] [place] Date(s): 05/25/22 - 06/01/22 [facility] [address] [place], [place] [address] Encounter Diagnosis COVID-19 virus infection(Discharge Diagnosis) - 05/25/22 Mild asthma exacerbation(Discharge Diagnosis) - 05/25/22 Attending Physician: Diane Frank MD Allergies, Adverse [...] Papillomavirus Vaccine 08/14/08 Given Varicella Virus Vaccine 10/3/08 Given Varicella Virus Vaccine 08/02/98 Given Meningococcal [...] By Mouth, Daily, Rx by [facility], 0 Refills, Maintenance, 12/01/20 13:52:00 EST, Partial fill upon patient request if the prescription is for a schedule II opioid drug. Start Date: 12/01/20 Status: Ordered Hair, Skin & Nails 5 mg oral capsule 1 capsule = 5 mg, By Mouth, Daily, # 30 capsule, 0 Refills, Maintenance, 01/09/22 11:26:00 EST, [facility] #[id number], Partial fill upon patient request if the [...] 5 Refills, Soft Stop, 12/01/20 13:54:00 EST, [place], [facility] #[id number], Partial fill upon patientrequest if the prescription is for a schedule II op... Start Date: 12/01/20 Status: Ordered Paxlovid 150 mg-100 mg oral tablet See Instructions, 300mg nirmatrelvir (two 150mg tablets) with 100mg ritonavir (one tablet). All 3 tablets taken together twice daily for 5 days, with or without food, # 30 tablet, 0 Refills, Maintenance, 05/26/22 9:41:00 EDT, [facility] 3,... Start Date: 05/26/22 Status: Ordered ProAir HFA 90 mcg/inh inhalation aerosol with adapter 2, puffs, Inhalation, Every 6 hours, PRN, # 8.5 Gm, Refills 5, Route to Pharmacy Electronically, NCPDP_[id number], [facility] #[id number], 173, cm, 01/09/22 11:00:00 EST, Height, 97.5, [...] tablet, 5 Refills, Maintenance, 01/09/22 11:43:00 EST, [facility] #[id number], 173, cm, 01/09/22 11:00:00 EST, Height, 97.5, kg, 12/04/20 15:25:00 EST, Dry Weight Start Date: 01/09/22 Status: Ordered Problem List Condition Effective Dates Status Health Status Inform ant Cholelithiasis (gallstones)(Confirmed) Active Depression/Anxiety(Confirmed) Active Obese class I(Confirmed) Active Tobacco use(Confirmed) Active Diagnosis Diagnosis Type Effective Dates Health Status Clinical Service Informant COVID-19 virus infection Discharge Diagnosis 05/25/22 Mild asthma exacerbation Discharge Diagnosis 05/25/22 Social History Social History Type Response Smoking Status 5-9 cigarettes (betw een 1/4 to 1/2 pack)/day in last 30 days; Other: trying to quit - down from 15 to 2cig daily; entered on: 01/09/22 Sex
--- OUTSIDE RECORDS SUMMARY | 2023-12-05 00:33 | XMS_ITS | Continuity of Care Document ---
Author Name Unknown Organization [facility] Address [address] [place] [address]- Care Team Providers Care Acid Concentrator Name Role Phone Lizzy LEO, Becky Primary Care Physician [facility] Date(s): 03/01/21 - 03/31/21 [facility] [address] [place], [place] [address] Attending Physician: Armando Montero Admitting [...] By Mouth, Daily at bedtime, Rx by [facility], 0 Refills, Maintenance,02/15/21 10:47:00 EDT, [...] 5 Refills, Soft Stop, 12/01/20 13:54:00 EST, [place], [facility] #[id number], Partial fill upon patientrequest if the prescription [...] tablet, 5 Refills, Maintenance, 01/24/21 13:55:00 EDT, [facility] #[id number], 173, cm, 12/04/20 15:25:00 EST, Height, 97.5, [...]
--- OUTSIDE RECORDS SUMMARY | 2023-12-05 00:33 | XMS_ITS | Continuity of Care Document ---
Author Name Unknown Organization [facility] Address [address] [place] [address]- Care Team Providers Care Manager R D Name Role Phone Becky Ball MD Primary Care Physician Encounter [facility] [place] [place] Date(s): 06/16/20 - 07/16/20 [facility] [address] [place] [address]- [facility] Attending Physician: AdmArmando brothers Admitting Physician: Admtr, [...] 0 Refills, Maintenance, 01/06/20 8:04:00 EST, [place], [facility] #52811, 1 tablet By Mouth 2 times a [...] tablet, 1 Refills, Maintenance, 03/16/20 9:55:00 EDT, [facility] #[id number], 173, cm, 01/31/20 14:00:00 EDT, Height, 86.6, [...] Refills, Maintenance, 03/16/20 9:55:00 EDT, ER Tablet, [facility] #31242, 173, cm, 01/31/20 14:00:00 EDT, Height, 86.6, kg, 12/02/19 9:54:00 EST, Dry Weight Start Date: 03/16/20 Stop Date: 09/12/20 Status: Ordered ZyrTEC 10 mg oral tablet 1 tablet = 10 mg, By Mouth, Daily, PRN seasonal allergies, # 30 tablet, 5 Refills, Maintenance, 03/16/20 9:54:00 EDT, [facility] #[id number], 173, cm, 01/31/20 14:00:00 EDT, Height, 86.6, kg, 12/02/19 9:54:00 EST, Dry Weight Start Date: 03/16/20 Status: Ordered Problem List Condition Effective Dates Status Health Status Inform ant Cholelithiasis (gallstones)(Confirmed) Active Depression/Anxiety(Confirmed) Active Tobacco use(Confirmed) Active Social History Social History Type Response Smoking Status Current every day mel mark entered on: 12/16/15 Sex
--- OUTSIDE RECORDS SUMMARY | 2023-12-05 00:33 | XMS_ITS | Continuity of Care Document ---
Author Name Unknown Organization [facility] Address [address] [place] [address]- Care Team Providers Care Motorized Squad Captain Name Role Phone Becky Ball MD Primary Care Physician [facility] Date[facility]s): 05/12/20 - 05/19/20 [facility] [address] [place] [address]- [facility] Attending Physician: Becky Ball MD Allergies, Adverse [...] 0 Refills, Maintenance, 01/06/20 8:04:00 EST, [place], [facility] #[id number], 1 tablet By Mouth 2 times a [...] 1 Refills, Maintenance, 03/16/20 9:55:00 EDT, Tablet, [facility] #60882, 173, cm, 01/31/20 14:00:00 EDT, Height, 86.6, [...] Refills, Maintenance, 03/16/20 9:55:00 EDT, ER Tablet, [facility] #05525, 173, cm, 01/31/20 14:00:00 EDT, Height, 86.6, kg, 12/02/19 9:54:00 EST, Dry Weight Start Date: 03/16/20 Stop Date: 09/12/20 Status: Ordered ZyrTEC 10 mg oral tablet 1 tablet = 10 mg, By Mouth, Daily, PRN seasonal allergies, # 30 tablet, 5 Refills, Maintenance, 03/16/20 9:54:00 EDT, [facility] #[id number], 173, cm, 01/31/20 14:00:00 EDT, Height, 86.6, kg, 12/02/19 9:54:00 EST, Dry Weight Start Date: 03/16/20 Status: Ordered Problem List Condition Effective Dates Status Health Status Inform ant Cholelithiasis (gallstones)(Confirmed) Active Depression/Anxiety(Confirmed) Active Tobacco use(Confirmed) Active Social History Social History Type Response Smoking Status Current every day mel mark entered on: 12/16/15 Sex
--- OUTSIDE RECORDS SUMMARY | 2023-12-05 00:33 | XMS_ITS | Continuity of Care Document ---
Author Name Unknown Organization [facility] Address [address] [place] [address]- Care Team Providers Care Epic [employer] Name Role Phone Lizzy LEO, Becky Primary Care Physician [phone] Encounter [facility] Date(s): 02/15/21 - 02/22/21 [facility] [address] [place], [place] [address] Attending Physician: Not on Staff, Attending MD [...] By Mouth, Daily at bedtime, Rx by [facility], 0 Refills, Maintenance,02/15/21 10:47:00 EDT, [...] 5 Refills, Soft Stop, 12/01/20 13:54:00 EST, [place], [facility] #23643, Partial fill upon patientrequest if the prescription [...] tablet, 5 Refills, Maintenance, 01/24/21 13:55:00 EDT, [facility] #33929, 173, cm, 12/04/20 15:25:00 EST, Height, 97.5, [...]
--- OUTSIDE RECORDS SUMMARY | 2023-12-05 00:33 | XMS_ITS | Continuity of Care Document ---
Author Name Unknown Organization [facility] Address [address] [place] [address]- Care Team Providers Care Polisher Implant Name Role Phone Lizzy LEO, Becky Primary Care Physician [phone] [facility] Date(s): 12/01/20 - 12/08/20 [facility] [address] [place], [place] [address] Attending Physician: Becky Ball MD Allergies, Adverse [...] Haemophilus B conjugate (HbOC) vaccine 12/02/95 [facility] Haemophilus B conjugate (HbOC) vaccine 02/09/95 Gi [...] 300 mg, By Mouth, Daily, Rx by [facility], 0 Refills, Maintenance, 12/01/20 13:52:00 EST, Partial fill upon patient request if the prescription is for a schedule II opioid drug. Start Date: 12/01/20 Status: Ordered lamotrigine 150 mg oral tablet 1 tablet = 150 mg, By Mouth, Daily in AM, Rx by [facility], 0 Refills, Maintenance, 12/01/20 13:52:00 [...] 5 Refills, Soft Stop, 12/01/20 13:54:00 EST, [place], [facility] #[id number], Partial fill upon patientrequest if the prescription is for a schedule II op... Start Date: 12/01/20 Status: Ordered sertraline 100 mg oral tablet 1.5 tablet = 150 mg, By Mouth, Daily, Rx by [facility], # 30 tablet, 0 Refills, Maintenance, 12/01/20 13:55:00 EST, Tablet, Partial fill upon patient request if the prescription is for a schedule II opioid drug. Start Date: 12/01/20 Status: Ordered ZyrTEC 10 mg oral tablet 1 tablet = 10 mg, By Mouth, Daily, PRN seasonal allergies, # 30 tablet, 5 Refills, Maintenance, 03/16/20 9:54:00 EDT, [facility] #[id number], 173, cm, 01/31/20 14:00:00 EDT, Height, 86.6, [...]
--- OUTSIDE RECORDS SUMMARY | 2023-12-05 00:33 | XMS_ITS | Continuity of Care Document ---
Author Name Unknown Organization [facility] ter Address [address] [place] [address]- Care Team Providers Care Manager Data Center Name Role Phone Becky Ball MD Primary Care Physician [facility] Date(s): 11/26/20 - 11/27/[address] [address]- Encounter Diagnosis Opioid abuse(Final) - 11/27/20 Discharge Disposition: A-D/C Home Attending Physician: Jose Seals MD Admitting Physician: Jose Seals MD Referring Physician: Not on Staff, Referring MD Allergies, Adverse Reactions, Alerts Substance Reaction [...] 1Admin Note: vis form given 06/18/2015 Medications Acetaminophen Tablet 975 mg, Tablet, By Mouth, Once, STAT, 11/26/20 23:15:00 EST, Stop date 11/26/20 23:15:00 EST Start Date: 11/26/20 Stop Date: 11/26/20 Status: Completed Chantix Starter Pack 0.5 mg-1 mg oral tablet 1 tablet, By Mouth, 2 times a day, as directed on package labeling, # 53 tablet, 0 Refills, Maintenance, 01/06/20 8:04:00 EST, Table[place], [facility] #[id number], 1 tablet By Mouth 2 times a day,Instr:as directed on package labeling, 173, cm, ... Start Date: 01/06/20 Status: Ordered ibuprofen 800 mg oral tablet 800 mg, 1, tablet, By Mouth, Every 8 hours, # 30 tablet, Refills 0, Tot. Refills 0, Maintenance, 09/30/20 12:06:00 EST, Route to Pharmacy Electronically, [facility] #[id number], Partial fill upon patient request, 172, cm, [...] 1 Refills, Maintenance, 07/23/20 10:15:00 EDT, Table[place], [facility] #58579, 173, cm, 01/31/20 14:00:00 EDT, Height, 86.6, kg, 12/02/19 9:54:00 EST, Dry Weight Start Date: 07/23/20 Stop Date: 01/19/21 Status: Ordered Tylenol 325 mg oral capsule 2 capsule = 650 mg, By Mouth, Every 6 hours, # 30 capsule, 0 Refills, Maintenance, 09/30/20 12:06:00 EST, [facility] #51489, Partial fill upon patient request, 172, cm, [...] 1 Refills, Maintenance, 07/23/20 10:15:00EDT, ER Tablet, [facility] #[id number], 173, cm, 01/31/20 14:00:00 EDT, Height, 86.6, kg, 12/02/19 9:54:00 EST, Dry Weight Start Date: 07/23/20 Stop Date: 01/19/21 Status: Ordered ZyrTEC 10 mg oral tablet 1 tablet = 10 mg, By Mouth, Daily, PRN seasonal allergies, # 30 tablet, 5 Refills, Maintenance, 03/16/20 9:54:00 EDT, [facility] #[id number], 173, cm, 01/31/20 14:00:00 EDT, Height, 86.6, kg, 12/02/19 9:54:00 EST, Dry Weight Start Date: 03/16/20 Status: Ordered Problem List Condition Effective Dates Status Health Status Inform ant Cholelithiasis (gallstones)(Confirmed) Active Depression/Anxiety(Confirmed) Active Tobacco use(Confirmed) Active Results Radiology Reports * Exam Date Time Procedure Performing Provider Status 11/26/20 11:59 PM Chest 2 Views Frontal and Lat Juhi Rodriguez; Auth (Verified) Notes: (Chest 2 Views Frontal and Lat) Reason For Exam: Shortness of Breath RESULT: Chest 2 Views Frontal and Lat Chest 2 Views Frontal and Lat Hx of Present Illness: Patient w hx of opiate abuse, clean for 2 years, recently w increased life stressors. Found tonight unresponsive by family who administered 4mg intranasal narcan. Patient alertby the time of EMS arrival. Patient denies SI; Reason: Shortness of Breath; Clinical Question(s): CHF COMPARISON: None. FINDINGS: LINES AND TUBES: None. LUNGS AND PLEURA: Clear lungs. Normal pulmonary vascularity. No pleural effusion. No pneumothorax. HEART, MEDIASTINUM AND KESHAV: Heart is normal in size. Normal upper mediastinal and hilar contour. BONES AND SOFT TISSUES: No acute abnormality. IMPRESSION: No acute abnormality. WSN: [id number] Ordering Physician: Joe Romero Dictated By: David Johnson MD Dictated Date/Time: 11/27/20 0:02 am Reviewed By: David Johnson MD Signed By: David Johnson MD Signed Date/Time: 11/27/20 0:02 am Transcribed By: KARHTIK Transcribed Date/Time: 11/27/20 0:01 am Vital Signs Most recent to oldest [Reference Range]: 1 2 3 Oxygen Saturation [94-100 %] 94 % (11/27/20 1:20 AM) 98 % (11/26/20 11:00 PM) Pulse Rate [55-90 bpm] 108 bpm *H* (11/27/20 1:20 AM) 103 bpm *H* (11/26/20 11:00 PM) Blood Pressure [90-138/55-84 mm Hg] 100/51mm Hg (11/27/20 1:20 AM) 103/72mm Hg (11/26/20 11:00 PM) Respiratory Rate [16-30 br/min] 16 br/min (11/27/20 1:20 AM) 18 br/min (11/27/20 12:23 AM) 14 br/min *L* (11/26/20 11:00 PM) Temperature [96.8-100.4 DegF] 98.1 DegF (11/26/20 11:00 PM) Mode of Delivery (Oxygen) Room air (11/27/20 1:20 AM) Room air (11/26/20 11:00 PM) Blood pressure sites Arm, right (11/27/20 1:20 AM) Arm, left (11/26/20 11:00 PM) Temperature Route Oral (11/26/20 11:00 PM) Weight Obtained Via [facility] (11/26/20 11:00 PM) Dry Weight Obtained Via [facility]o (11/26/20 11:00 PM) Social History Social History Type Response Smoking Status Current every day mel mark entered on: 12/16/15 Sex
--- OUTSIDE RECORDS SUMMARY | 2023-12-05 00:33 | XMS_ITS | Continuity of Care Document ---
Author Name Unknown Organization [facility] Address [address] [place] [address]- Care Team Providers Care Director Of Securities And Real Estate Name Role Phone Lizzy LEO, Becky Primary Care Physician [phone] [facility]s): 01/11/21 - 02/10/21 [facility] [address] [place], [place] [address] Allergies, Adverse Reactions, Alerts Substance Reaction Severity [...] 300 mg, By Mouth, Daily, Rx by [facility], 0 Refills, Maintenance, 12/01/20 13:52:00 [...] By Mouth, Daily in AM, Rx by [facility], 0 Refills, Maintenance, 12/01/20 13:52:00 [...] 5 Refills, Soft Stop, 12/01/20 13:54:00 EST, [place], [facility] #[id number], Partial fill upon patientrequest if the prescription is for a schedule II op... Start Date: 12/01/20 Status: Ordered Sertraline = 175 mg, By Mouth, Daily, Rx by [facility], 0 Refills, Maintenance, [...] tablet, 5 Refills, Maintenance, 01/24/21 13:55:00 EDT, [facility] #[id number], 173, cm, 12/04/20 15:25:00 EST, Height, 97.5, [...]
--- OUTSIDE RECORDS SUMMARY | 2023-12-05 00:33 | XMS_ITS | Continuity of Care Document ---
Author Name Unknown Organization [facility] Address [address] [place] [address]- Care Team Providers Care Lvn Name Role Phone Lizzy LEO, Becky Primary Care Physician [phone] [facility] Date(s): 01/12/21 - 02/11/21 [facility] [address] [place], [place] [address] Allergies, Adverse Reactions, Alerts Substance Reaction [...] 300 mg, By Mouth, Daily, Rx by [facility], 0 Refills, Maintenance, 12/01/20 13:52:00 [...] By Mouth, Daily in AM, Rx by [facility], 0 Refills, Maintenance, 12/01/20 13:52:00 [...] 5 Refills, Soft Stop, 12/01/20 13:54:00 EST, [place], [facility] #[id number], Partial fill upon patientrequest if the prescription is for a schedule II op... Start Date: 12/01/20 Status: Ordered Sertraline = 175 mg, By Mouth, Daily, Rx by [facility], 0 Refills, Maintenance, 01/04/21 14:16:00 [...] tablet, 5 Refills, Maintenance, 01/24/21 13:55:00 EDT, [facility] #[id number], 173, cm, 12/04/20 15:25:00 EST, Height, 97.5, [...]
--- OUTSIDE RECORDS SUMMARY | 2023-12-05 00:33 | XMS_ITS | Continuity of Care Document ---
Author Name Unknown Organization [facility] Address [address] [place] [address]- Care Team Providers Care Member Of The Legislative Council Name Role Phone Diane Frank MD Primary Care Physician [facility] Date(s): 02/13/23 - 03/15/23 [facility] [address] [place], [place] [address] Allergies, Adverse Reactions, Alerts Substance Reaction [...] 17:32:00 EDT, Aerosol, Route to Pharmacy Electronically, [id number], [facility] #[id number], [facility] available, 173... Start Date: 03/06/23 Stop Date: 05/05/23 Status: Ordered buPROPion 300 mg/24 hours (XL) oral tablet, extended release 1 tablet = 300 mg, By Mouth, Daily, Rx by [facility], 0 Refills, Maintenance, 12/01/20 13:52:00 EST, Partial fill upon patient request if the prescription is for a schedule II opioid drug. Start Date: 12/01/20 Status: Ordered Hair, Skin & Nails 5 mg oral capsule 1 capsule = 5 mg, By Mouth, Daily, # 30 capsule, 0 Refills, Maintenance, 01/09/22 11:26:00 EST, [facility] #[id number], Partial fill upon patient request if the [...] 5 Refills, Soft Stop, 12/01/20 13:54:00 EST, [place], [facility] #[id number], Partial fill upon patientrequest if the prescription is for a schedule II op... Start Date: 12/01/20 Status: Ordered Paxlovid 150 mg-100 mg oral tablet See Instructions, 300mg nirmatrelvir (two 150mg tablets) with 100mg ritonavir (one tablet). All 3 tablets taken together twice daily for 5 days, with or without food, # 30 tablet, 0 Refills, Maintenance, 05/26/22 9:41:00 EDT, [facility] 3,... Start Date: 05/26/22 Status: Ordered [...] tablet, 5 Refills, Maintenance, 03/05/23 14:53:00 EDT, [facility] #[id number], 173, cm, 04/10/22 13:09:00 EDT, Height Start [...] Personnel Name: Zac LEO, Diane Parekh Position: [facility] Primary Care Physician Member Role: PCP Address: Address: [address] [place] [address] Adult & Pediatric [address] Name: Rosalina Hadley RN Position: S RN Member Role: Primary Care Nurse Name: Carin Foreman RN Position: [facility] OB RN Member Role: Primary Care Nurse Care Team Related Persons Name: JEFFREY RODRIGUEZ Address: home [address], [place] Name: SARATH GILLILAND Address: home [address], [place] Name: SHELDON GILLILAND Address: [id number] Address: [address] [place] [address]
--- OUTSIDE RECORDS SUMMARY | 2023-12-05 00:33 | XMS_ITS | Continuity of Care Document ---
Author Name Unknown Organization [facility] Address [address] [place] [address]- Care Team Providers Care Cat Scan Technologist Name Role Phone Becky Ball MD Primary Care Physician [place] [facility] [place]s): 03/03/20 - 07/01/20 [facility] [address] [place] [address]- [facility] Attending Physician: Becky Ball MD [...] 0 Refills, Maintenance, 01/06/20 8:04:00 EST, Table[place], [facility] #[id number], 1 tablet By Mouth 2 times a [...] 1 Refills, Maintenance, 03/16/20 9:55:00 EDT, Tablet, [facility] #[id number], 173, cm, 01/31/20 14:00:00 EDT, Height, 86.6, [...] Refills, Maintenance, 03/16/20 9:55:00 EDT, ER Tablet, [facility] #[id number], 173, cm, 01/31/20 14:00:00 EDT, Height, 86.6, kg, 12/02/19 9:54:00 EST, Dry Weight Start Date: 03/16/20 Stop Date: 09/12/20 Status: Ordered ZyrTEC 10 mg oral tablet 1 tablet = 10 mg, By Mouth, Daily, PRN seasonal allergies, # 30 tablet, 5 Refills, Maintenance, 03/16/20 9:54:00 EDT, [facility] #[id number], 173, cm, 01/31/20 14:00:00 EDT, Height, 86.6, kg, 12/02/19 9:54:00 EST, Dry Weight Start Date: 03/16/20 Status: Ordered Problem List Condition Effective Dates Status Health Status Inform ant Cholelithiasis (gallstones)(Confirmed) Active Depression/Anxiety(Confirmed) Active Tobacco use(Confirmed) Active Social History Social History Type Response Smoking Status Current every day mel mark entered on: 12/16/15 Sex
--- OUTSIDE RECORDS SUMMARY | 2023-12-05 00:33 | XMS_ITS | Continuity of Care Document ---
Author Name Unknown Organization [facility]] [facility] Address [address] [place] [address]- Care Team Providers Care Deputy Grand Jury Name Role Phone Diane Frank MD Primary Care Physician [facility]s): 04/11/22 - 05/11/22 [facility] [address] [place], [place] [address] Attending Physician: Admdeneen, Armando Admitting Physician: Admtr, [...] By Mouth, Daily, Rx by [facility], 0 Refills, Maintenance, 12/01/20 13:52:00 EST, Partial fill upon patient request if the prescription is for a schedule II opioid drug. Start Date: 12/01/20 Status: Ordered Hair, Skin & Nails 5 mg oral capsule 1 capsule = 5 mg, By Mouth, Daily, # 30 capsule, 0 Refills, Maintenance, 01/09/22 11:26:00 EST, [facility] #[id number], Partial fill upon patient request if the [...] 5 Refills, Soft Stop, 12/01/20 13:54:00 EST, [place], [facility] #[id number], Partial fill upon patientrequest if the prescription is for a schedule II op... Start Date: 12/01/20 Status: Ordered ProAir HFA 90 mcg/inh inhalation aerosol with adapter 2, puffs, Inhalation, Every 6 hours, PRN, # 8.5 Gm, Refills 5, Route to Pharmacy Electronically, NCPDP_[id number], [facility] #[id number], 173, cm, 01/09/22 11:00:00 EST, Height, 97.5, [...] tablet, 5 Refills, Maintenance, 01/09/22 11:43:00 EST, [facility] #[id number], 173, cm, 01/09/22 11:00:00 EST, Height, 97.5, [...]
[2023-12-05 02:10] VITALS: BP 108/70; PULSE 80; RESP 14; TEMP 37.1; O2SAT 96
== END 2023-12-05 02:18 | disposition home or self-care (01) ==
PROVIDERS: Physician Assistant; Emergency Provider Internal Medicine
DX: N93.8 Other specified abnormal uterine and vaginal bleeding (principal); R10.2 Pelvic and perineal pain; M79.10 Myalgia, unspecified site; N93.9 Abnormal uterine and vaginal bleeding, unspecified; Z79.899 Other long term (current) drug therapy
CPT/HCPCS: 0353U; 36415; 76830; 76856; 80048; 80076; 81001; 81025; 83690; 83735; 85025; 99284